=== PATIENT | male | born 1950 | race Caucasian/White ===

== ENCOUNTER 2021-02-19 11:52 | Outpatient (CLI) | payer MEDICARE, BC ==
--- NOTE | 2021-02-19 12:37 | XRAY Report ---
PROCEDURE: Shoulder 2 View RT INDICATIONS: R SHOULDER PX TECHNIQUE: 2 views of the shoulder were acquired. COMPARISON: None. FINDINGS: Bones: No fractures or dislocations. No suspicious bony lesions. Visualized ribs appear intact. Soft tissues: No suspicious soft tissue calcifications. IMPRESSION: Normal right shoulder Reviewed by: Johnnie Vann on 02/19/2021 12:35 PM PDT Approved by: Johnnie Vann on 02/19/2021 12:35 PM PDT Station ID: [email or web address]
== END 2021-02-19 23:59 | disposition home or self-care (01) ==
LOC: DI.N 11:52
PROVIDERS: ATTEND Nurse Practitioner
DX: M25.511 Pain in right shoulder (principal)

== ENCOUNTER 2021-02-19 13:26 | Emergency (ER) | payer MEDICARE, BC ==
[2021-02-19 13:45] VITALS: BP 152/86
--- NOTE | 2021-02-19 14:22 | XRAY Report ---
PROCEDURE: Chest 1 View X-Ray INDICATIONS: Chest pain TECHNIQUE: One view of the chest was acquired. COMPARISON: None FINDINGS: Surgical changes and devices: None. Lungs and pleura: No pleural effusions or pneumothorax. Lungs are clear. Mediastinum: Mediastinal contours appear normal. Heart size is normal. Bones and chest wall: No suspicious bony lesions. Age-appropriate degenerative changes are seen. O verlying soft tissues appear unremarkable. IMPRESSION: Normal portable chest Reviewed by: Serafin Morris MD on 02/19/2021 1:20 PM AKDT Approved by: Serafin Morris MD on 02/19/2021 1:20 PM AKDT Station ID: [id number]
[2021-02-19 14:43] LABS: BASOPHILS % (AUTO) 0.2 %; EOSINOPHILS % (AUTO) 0.3 %; HCT - HEMATOCRIT 42.7 % (42.0-52.0); HGB - HEMOGLOBIN 15.1 g/dL (14.0-18.0); LYMPHOCYTES # (AUTO) 1.2 10^3/uL (1.5-3.5); LYMPHOCYTES % (AUTO) 18.6 %; MEAN CORPUSCULAR HEMOGLOBIN 30.6 pg (27.0-31.0); MEAN CORPUSCULAR HGB CONC 35.4 g/dL (32.0-36.0); MEAN CORPUSCULAR VOLUME 86.6 fL (80.0-94.0); MEAN PLATELET VOLUME 9.3 fL (7.4-11.4); MONOCYTES # (AUTO) 0.5 10^3/uL (0.0-1.0); MONOCYTES % (AUTO) 7.2 %; NEUTROPHILS # (AUTO) 4.6 10^3/uL (1.5-6.6); NEUTROPHILS % (AUTO) 73.4 %; PLT - PLATELET COUNT 161 10^3/uL (130-450); RED BLOOD COUNT 4.93 10^6/uL (4.70-6.10); RED CELL DISTRIBUTION WIDTH 12.6 % (12.0-15.0); WHITE BLOOD COUNT 6.2 x10^3/uL (4.8-10.8)
[2021-02-19 14:55] LABS: ALBUMIN 4.5 g/dL (3.2-5.5); ALBUMIN/GLOBULIN RATIO 1.3 (1.0-2.2); BILIRUBIN,TOTAL 0.9 mg/dL (0.2-1.0); CALCIUM 9.4 mg/dL (8.5-10.3); CREATININE 1.2 mg/dL (0.6-1.2); POTASSIUM 4.1 mmol/L (3.5-5.0)
--- NOTE | 2021-02-19 16:14 | ED Physician Documentation ---
History of Present Illness - Stated complaint Stated Complaint: high bp, light headed - Chief complaint Chief Complaint: Cardiac - History obtained from History obtained from: Patient - Additonal information Additional information: 70-year-old gentleman with history of hypertension started amlodipine about 3 weeks ago. He also had a shoulder injury a little before that. He is noted for the last 3 weeks that when he stands up too fast or is upright he just feels a little off and dizzy. It is nonspecific. It is not associate with chest pain or trouble breathing. No pedal edema or calf pain. Review of Systems Constitutional: denies: Fever, Chills, Myalgias, Fatigue Eyes: denies: Loss of vision, Decreased vision, Photophobia Ears: denies: Loss of hearing, Ear pain Nose: denies: Rhinorrhea / runny nose, Congestion Throat: denies: Sore throat Cardiac: denies: Chest pain / pressure, Palpitations PD PAST MEDICAL HISTORY - Past Medical History Cardiovascular: Other Respiratory: None, Other Endocrine/Autoimmune: None GI: None : None, Other HEENT: None, Other Psych: None Musculoskeletal: Rheumatoid arthritis Derm: None - Present Medications Home Medications: Ambulatory Orders Medication Instructions Recorded Confirmed Aspirin/Calcium Carbonate/Mag 325 mg PO DAILY 09/26/14 09/26/14 [Aspirin Non Irrit 325 mg Tab] Finasteride 5 mg PO DAILY 09/26/14 09/26/14 Gluc [place]/Chondro [place] A/Vit C/Mn 1 each PO DAILY 09/26/14 09/26/14 [Glucosamine 1,500 Complex Cp] Saw [place] Fruit/Zinc Picoli 1 cap PO DAILY 09/26/14 09/26/14 [Saw [place] Capsule] Selenium 200 mcg PO DAILY 09/26/14 09/26/14 Tamsulosin [Flomax] 0.4 mg PO DAILY 09/26/14 09/26/14 Zolpidem [Ambien] 5 mg PO DAILY PRN 09/26/14 09/26/14 - Allergies Allergies/Adverse Reactions: Allergies Allergy/AdvReac Type Severity Reaction Status Date / Time No Known Drug Allergies Allergy Verified 02/19/21 13:39 PD ED PE NORMAL - Vitals Vital signs reviewed: Yes - General General: Alert and oriented X 3, No acute distress - Neck Neck: Supple, no meningeal sign, No bony TTP - Cardiac Cardiac: RRR, No murmur - Respiratory Respiratory: No respiratory distress, Clear bilaterally - Abdomen Abdomen: Non tender - Extremities Extremities: No edema, No calf tenderness / cord - Neuro Neuro: Alert and oriented X 3, Normal speech Results - Vitals Vitals: Vital Signs - 24 hr 02/19/21 13:40 Temperature 36.6 C Heart Rate 80 Respiratory 16 Rate Blood Pressure 152/86 H O2 Saturation 97 Oxygen O2 Source Room air - EKG (time done) 1348 Rate: Rate (enter#) (81) Rhythm: NSR [place]: Normal Intervals: Normal [place] QRS: Normal Ischemia: Normal ST segments - Labs Labs: Laboratory Tests 02/19/21 02/19/21 02/19/21 14:38 14:38 14:38 WBC 6.2 RBC 4.93 Hgb 15.1 Hct 42.7 MCV 86.6 MCH 30.6 MCHC 35.4 RDW 12.6 Plt Count 161 MPV 9.3 Neut # (Auto) 4.6 Lymph # (Auto) 1.2 L [place] # (Auto) 0.5 Eos # (Auto) 0.0 Baso # (Auto) 0.0 Absolute Nucleated RBC 0.00 Nucleated RBC % 0.0 Sodium 138 Potassium 4.1 Chloride 103 Carbon Dioxide 26 Anion Gap 9.0 BUN 29 H Creatinine 1.2 Estimated GFR (MDRD) 60 L Glucose 133 H Calcium 9.4 Total Bilirubin 0.9 AST 20 ALT 25 Alkaline Phosphatase 59 Troponin I High Sens 3.0 Total Protein 8.0 Albumin 4.5 Globulin 3.5 Albumin/Globulin Ratio 1.3 Lipase 22 PD MEDICAL DECISION MAKING - ED course ED course: 70-year-old gentleman with nonspecific lightheadedness. Recent increase in his blood pressure medicines and also admits to probably not keeping up with the [facility] er with recent heat episodes. His BUN is slightly elevated compared to his normal which is already a little elevated and oral rehydration is encouraged. Single view chest x-ray interpreted contemporaneously by me is normal Departure - Departure Disposition: 01 Home, Self Care Condition: Good Record reviewed to determine appropriate education?: Yes Instructions: ED Dehydration, ED Near Syncope Unkn Comments: As discussed, your BUN is slightly higher than your usual, combined with your new blood pressure medication you are probably a little bit dehydrated. Follow- up with your physician and drink more water. Return for new or worsening symptoms.
== END 2021-02-19 16:20 | disposition home or self-care (01) ==
LOC: ED 13:26
DX: R42 Dizziness and giddiness (principal); E86.0 Dehydration; I10 Essential (primary) hypertension
CPT/HCPCS: 36415; 80053; 83690; 84484; 85025; 93005; 99284

== ENCOUNTER 2021-02-27 18:16 | Outpatient (CLI) | payer MEDICARE, BC ==
--- NOTE | 2021-02-28 08:49 | XRAY Report ---
PROCEDURE: Cervical Spine 2 View INDICATIONS: STRAIN OF MUSCLE, FASCIA, AND TENDON AT NECK LEVEL TECHNIQUE: 2 view(s) of the cervical spine were acquired. COMPARISON: None. FINDINGS: Bones: No fractures or dislocations to the C7-T1 level. There is straightening of normal cervical l ordosis. Degenerative endplate changes are noted at C5-6 and C6-7 levels. The lateral masses of C1 ap pear intact on the odontoid view. No suspicious bony lesions. Soft tissues: No prevertebral soft tissue swelling. IMPRESSION: No cervical spine fracture or dislocation. Degenerative disc disease at C5-6 and C6-7 le vels. Reviewed by: Javier Ramirez MD on 02/28/2021 8:48 AM PDT Approved by: Javier Ramirez MD on 02/28/2021 8:48 AM PDT Station ID: [id number]
== END 2021-02-27 18:17 | disposition home or self-care (01) ==
LOC: DI.N 18:16
PROVIDERS: ATTEND Family Medicine
DX: S16.1XXD Strain of muscle, fascia and tendon at neck level, subsequent encounter (principal); M50.322 Other cervical disc degeneration at C5-C6 level

== ENCOUNTER 2021-07-31 07:33 | Outpatient (CLI) | payer MEDICARE, BC ==
[2021-07-31 08:06] LABS: CREATININE 1.3 mg/dL (0.6-1.2)
[2021-07-31] MEDS ORDERED: GADOBUTROL 10 MMOL/10 ML VIAL ONE (08:20)
--- NOTE | 2021-07-31 09:40 | MRI Report ---
PROCEDURE: Brain W/WO INDICATIONS: VERTIGO CONTRAST: IV CONTRAST: Gadavist ml: 8.8 TECHNIQUE: Noncontrast axial T1 spin echo, axial T2 fast spin echo, sagittal and axial FLAIR, coronal T2 fast sp in echo, axial gradient echo, axial diffusion and ADC through the brain. After the administration of contrast, axial and coronal T1 spin echo with fat saturation through the brain. COMPARISON: None. FINDINGS: Image quality: Excellent. CSF spaces: Basal cisterns are patent. No extra-axial fluid collections. Ventricles are normal in size and shape. Brain: No midline shift. No intracranial bleeds or masses. No abnormal intracranial enhancement. There is cerebral volume loss for age. There is mild, age-appropriate periventricular white matter c hronic small vessel ischemic change. The brainstem appears normal. Diffusion-weighted images demons trate no acute ischemic insults. No chronic ischemic insults. Normal intravascular flow voids are p resent. Skull and face: Calvarial marrow is normal in signal. Orbits appear normal. Sinuses: Sinuses and mastoids appear clear. IMPRESSION: 1. Age-related volume loss and mild, age-appropriate small vessel ischemic change. 2. No evidence acute stroke, hemorrhage, or mass. Reviewed by: Glenroy Weiss MD on 07/31/2021 9:39 AM PST Approved by: Glenroy Weiss MD on 07/31/2021 9:39 AM PST Station ID: [id number]
[2021-07-31] MEDS ORDERED: GADOBUTROL 10 MMOL/10 ML VIAL IVP ONE (16:29)
== END 2021-07-31 07:34 | disposition home or self-care (01) ==
LOC: LAB 07:33 → DI 07:34
PROVIDERS: ATTEND Family Medicine
DX: R42 Dizziness and giddiness (principal)
CPT/HCPCS: 36415; 70553; 82565; A9585

== ENCOUNTER 2022-09-16 07:21 | Outpatient (CLI) | payer MEDICARE, BC ==
[2022-09-16 07:49] LABS: CREATININE,URINE 109.4 mg/dL; MICROALBUM/CREATININE RATIO,UR 2.7 ug/mg (<30.0); MICROALBUMIN,URINE 0.3 mg/dL (0-300.0)
[2022-09-16 13:27] LABS: ESTIMATED AVERAGE GLUCOSE 123 mg/dL (70-100); HEMOGLOBIN A1c% 5.9 % (4.27-6.07)
== END 2022-09-16 07:22 | disposition home or self-care (01) ==
LOC: LAB 07:21
PROVIDERS: ATTEND Nurse Practitioner
DX: E11.9 Type 2 diabetes mellitus without complications (principal)
CPT/HCPCS: 36415; 82043; 82570; 83036

== ENCOUNTER 2022-12-16 07:01 | Outpatient (CLI) | payer MEDICARE, BC | END 2022-12-16 07:02 | disposition home or self-care (01) | LOC: LAB 07:01 | PROVIDERS: ATTEND Urology | DX: Z12.5 Encounter for screening for malignant neoplasm of prostate (principal) ==

== ENCOUNTER 2023-01-03 10:00 | Outpatient (CLI) | payer MEDICARE, BC ==
[2023-01-03 17:38] LABS: BASOPHILS % (AUTO) 0.5 %; EOSINOPHILS # (AUTO) 0.1 10^3/uL (0.0-0.7); EOSINOPHILS % (AUTO) 1.2 %; HCT - HEMATOCRIT 43.2 % (42.0-52.0); HGB - HEMOGLOBIN 14.7 g/dL (14.0-18.0); LYMPHOCYTES # (AUTO) 1.6 10^3/uL (1.5-3.5); LYMPHOCYTES % (AUTO) 26.8 %; MEAN CORPUSCULAR HEMOGLOBIN 30.4 pg (27.0-31.0); MEAN CORPUSCULAR VOLUME 89.4 fL (80.0-94.0); MEAN PLATELET VOLUME 10.6 fL (7.4-11.4); MONOCYTES # (AUTO) 0.4 10^3/uL (0.0-1.0); MONOCYTES % (AUTO) 7.5 %; NEUTROPHILS # (AUTO) 3.8 10^3/uL (1.5-6.6); NEUTROPHILS % (AUTO) 63.8 %; PLT - PLATELET COUNT 198 10^3/uL (130-450); RED BLOOD COUNT 4.83 10^6/uL (4.70-6.10); RED CELL DISTRIBUTION WIDTH 12.8 % (12.0-15.0); WHITE BLOOD COUNT 5.9 x10^3/uL (4.8-10.8)
[2023-01-03 17:56] LABS: ALBUMIN 4.5 g/dL (3.2-5.5); ALBUMIN/GLOBULIN RATIO 1.4 (1.0-2.2); BILIRUBIN,TOTAL 0.8 mg/dL (0.2-1.0); CALCIUM 9.7 mg/dL (8.5-10.3); CREATININE 1.4 mg/dL (0.6-1.2); POTASSIUM 4.1 mmol/L (3.5-5.0); TOTAL PROTEIN 7.7 g/dL (6.7-8.2)
== END 2023-01-03 10:15 | disposition home or self-care (01) ==
LOC: LAB.N 10:00
PROVIDERS: ATTEND Nurse Practitioner
DX: R25.1 Tremor, unspecified (principal)
CPT/HCPCS: 36415; 80053; 85025

== ENCOUNTER 2023-01-09 07:02 | Outpatient (CLI) | payer MEDICARE, BC ==
--- NOTE | 2023-01-09 08:16 | CT Report ---
PROCEDURE: HEAD WO INDICATIONS: TREMOR TECHNIQUE: Noncontrast 4.5 mm thick angled axial sections acquired from the foramen magnum to the vertex. For r adiation dose reduction, the following was used: automated exposure control, adjustment of mA and/or kV according to patient size. COMPARISON: MRI brain dated 07/31/2021. FINDINGS: Image quality: Excellent. CSF spaces: Basal cisterns are patent. No extra-axial fluid collections. Ventricles are normal in size and shape. Brain: No midline shift. No intracranial masses or hemorrhage. No mass effect. Ribera-white matter i nterface is normal. There cerebral volume loss for age with resultant ventricular and sulcal prominen ce. There are periventricular and deep white matter chronic small vessel ischemic changes. Atheroscle rotic calcifications are noted in the intracranial segments of the bilateral internal carotid arterie s. Skull and face: Calvarium and visualized facial bones are intact, without suspicious lesions. Sinuses: Visualized sinuses and mastoids are clear. IMPRESSION: CT head without acute intracranial abnormalities. No mass or mass effect. Age-related senescent changes and sequela of chronic small vessel ischemic disease. Reviewed by: Darryl Michelle MD on 01/09/2023 8:14 AM PDT Approved by: Darryl Michelle MD on 01/09/2023 8:14 AM PDT Station ID: [id number]
== END 2023-01-09 07:03 | disposition home or self-care (01) ==
LOC: DI 07:02
PROVIDERS: ATTEND Nurse Practitioner
DX: R25.1 Tremor, unspecified (principal)

== ENCOUNTER 2023-01-12 06:05 | Emergency (ER) | payer MEDICARE, BC ==
--- NOTE | 2023-01-12 06:58 | ED Physician Documentation ---
PD HPI FOCAL NEURO - Stated complaint Stated Complaint: TREMORS - Chief complaint Chief Complaint: General - History obtained from History obtained from: Patient - History of Present Illness Timing - onset: How many months ago (has had some intermittent tremors for awhile. However has had increased amount of symptoms the past 2 months. HNotes it mainly at rest and bed. He describes the tremor that past several nights as almost appearing rigor like but he denies fever/illness per se.) Timing - details: Gradual onset, Intermittant Severity of deficit: Moderate Associated symptoms: No: Headache, Nausea / vomiting, Back pain Baseline status: positive: A&OX3, ambulatory, indep Similar symptoms before: Has not had sx before Recently seen: Clinic (went to walk in clinic few days ago and had outpt labs done and outpt head CT. Head CT done yesteday but pt had not heard results as yet.) Review of Systems Constitutional: denies: Fever, Chills Skin: denies: Rash, Lesions Neurologic: denies: Focal weakness, Numbness, Headache, Head injury PD PAST MEDICAL HISTORY - Past Medical History Cardiovascular: Hypertension, High cholesterol, Other Respiratory: None, Other Neuro: Other Endocrine/Autoimmune: Type 2 diabetes GI: GERD : Renal insuffiency, Other HEENT: None, Other Psych: None Musculoskeletal: Osteoarthritis Derm: None - Present Medications Home Medications: Ambulatory Orders Medication Instructions Recorded Confirmed Finasteride 5 mg PO DAILY 09/26/14 08/05/22 Saw [place] Fruit/Zinc Picoli 1 cap PO DAILY 09/26/14 08/05/22 [Saw [place] Capsule] Selenium 200 mcg PO DAILY 09/26/14 08/05/22 Tamsulosin [Flomax] 0.4 mg PO DAILY 09/26/14 08/05/22 Atorvastatin [Lipitor] 10 mg PO DAILY 08/05/22 08/05/22 Losartan Potassium [Cozaar] 100 mg PO DAILY 08/05/22 08/05/22 Omeprazole Magnesium 20 mg PO DAILY 08/05/22 08/05/22 hydroCHLOROthiazide [Hydrodiuril] 12.5 mg PO DAILY 08/05/22 08/05/22 metFORMIN [Glucophage] 500 mg PO BIDWM 08/05/22 08/05/22 - Allergies Allergies/Adverse Reactions: Allergies Allergy/AdvReac Type Severity Reaction Status Date / Time No Known Drug Allergies Allergy Verified 02/19/21 13:39 - Social History Does the pt smoke?: No Smoking Status: Never smoker Does the pt drink ETOH?: No Does the pt have substance abuse?: No - Immunizations Immunizations are current?: Yes - POLST Patient has POLST: No PD ED PE NORMAL - Vitals Vital signs reviewed: Yes - General General: Alert and oriented X 3, No acute distress, Well developed/nourished - Neck Neck: Supple, no meningeal sign, No JVD - Cardiac Cardiac: RRR, No murmur - Respiratory Respiratory: No respiratory distress, Clear bilaterally - Abdomen Abdomen: Normal bowel sounds, Soft, Non distended Results - Vitals Vitals: Vital Signs - 24 hr 01/12/23 01/12/23 06:19 07:42 Temperature 36.6 C Heart Rate 74 63 Respiratory 12 18 Rate Blood Pressure 144/88 H 142/88 H O2 Saturation 99 100 Oxygen O2 Source Room air - Labs Labs: Laboratory Tests 01/12/23 01/12/23 01/12/23 07:54 07:54 07:54 ESR 8 Total Creatine Kinase 76 Vitamin B12 307 TSH 1.13 PD Medical Decision Making - ED course ED course: he has had tremoring particularly at evening/night, with rested and/or trying to go to sleep. Not noting it during the daytime. I reviewed the head CT report done outpt and conveyed result to pedro. I saw the basic blood test done 2 weeks ago outpatient. Those essentially appeared normal with some mild chronic deficit of your kidney function. There are other blood tests I would consider with regard to tremor and neurologic function. I ordered those today and we will not get the results back for a few days. Follow-up with your primary care on Friday as planned. Have them reference some of the added blood test. These are typically low yield meaning unlikely to be abnormal but would fit with the idea of tremor so added those on since the basic ones have been normal. The CT result of the head does not show any obvious acute abnormalities. Age- related changes are noted. No tumors or mass effect etc. There are multiple categories of investigating tremor. Some is just enhanced physiologic and can do with things as simple as hydration. Medication related tremor can come from different medications. On your list of medicines, the statin can relate to muscle function and therefore lead to tremor. You could try stopping your atorvastatin for a month and see if it has an impact. Other categories as well. Regarding some of your other symptoms like the lightheadedness with standing, that is a very common side effect to your prostate medicines as well as the diuretic so probably does not need too much explanation. Sounds like you have very minimal caffeine so it is likely to be related. Follow-up with your primary care Friday as planned. Return if needed. Consideration for his tremor if sympotms are continued and bothersome wihould be Atenolol or SSRIs. Departure - Departure Disposition: Home, Self Care Clinical Impression: Tremor Condition: Stable Record reviewed to determine appropriate education?: Yes Comments: I saw the basic blood test done 2 weeks ago outpatient. Those essentially appeared normal with some mild chronic deficit of your kidney function. There are other blood tests I would consider with regard to tremor and neurologic function. I ordered those today and we will not get the results back for a few days. Follow-up with your primary care on Friday as planned. Have them reference some of the added blood test. These are typically low yield meaning unlikely to be abnormal but would fit with the idea of tremor so added those on since the basic ones have been normal. The CT result of the head does not show any obvious acute abnormalities. Age- related changes are noted. No tumors or mass effect etc. There are multiple categories of investigating tremor. Some is just enhanced physiologic and can do with things as simple as hydration. Medication related tremor can come from different medications. On your list of medicines, the statin can relate to muscle function and therefore lead to tremor. You could try stopping your atorvastatin for a month and see if it has an impact. Other categories as well. Regarding some of your other symptoms like the lightheadedness with standing, that is a very common side effect to your prostate medicines as well as the diuretic so probably does not need too much explanation. Sounds like you have very minimal caffeine so it is likely to be related. Follow-up with your primary care Friday as planned. Return if needed. Discharge Date/Time: 01/12/23 08:18
[2023-01-12 07:46] VITALS: BP 142/88
[2023-01-12 08:33] LABS: THYROID STIMULATING HORMONE 1.13 uIU/mL (0.34-5.60)
[2023-01-14 13:10] LABS: TREPONEMA PALLIDUM ANTIBODIES Non Reactive (Non Reactive)
[2023-01-14 16:08] LABS: ARSENIC BLOOD 2 ug/L (0-9); LEAD BLOOD 1.2 ug/dL (0.0-3.4); MERCURY BLOOD 1.3 ug/L (0.0-14.9)
== END 2023-01-12 08:18 | disposition home or self-care (01) ==
LOC: ED 06:05
DX: R25.1 Tremor, unspecified (principal); I10 Essential (primary) hypertension; E78.00 Pure hypercholesterolemia, unspecified; E11.9 Type 2 diabetes mellitus without complications; K21.9 Gastro-esophageal reflux disease without esophagitis; Z79.899 Other long term (current) drug therapy; Z79.84 Long term (current) use of oral hypoglycemic drugs
CPT/HCPCS: 36415; 82175; 82550; 82607; 83655; 83825; 84207; 84443; 85651; 86780; 99283

== ENCOUNTER 2023-01-28 08:05 | Outpatient (CLI) | payer MEDICARE, BC ==
--- NOTE | 2023-01-28 17:16 | Ultrasound Report ---
PROCEDURE: Carotid Doppler Complete INDICATIONS: CAROTID BRUIT TECHNIQUE: Color and pulse Doppler interrogation was performed of both carotid systems, with image documentation and velocity measurements. COMPARISON: None. FINDINGS: Right side: Brachial blood pressure: 127/77 mm Hg. Common carotid artery peak systolic velocity: 102 cm/sec. Internal carotid artery peak systolic velocity: 112 cm/sec. Internal carotid artery end diastolic velocity: 50 cm/sec. External carotid artery peak systolic velocity: 73 cm/sec. ICA/CCA peak systolic ratio: 1.1 . Ribera scale imaging description: Minimal plaque at the bifurcation Percent internal carotid artery stenosis: Less than 50%. Vertebral artery: Flow direction is antegrade. Left side: Brachial blood pressure: 123/77 mm Hg. Common carotid artery peak systolic velocity: 96 cm/sec. Internal carotid artery peak systolic velocity: 76 cm/sec. Internal carotid artery end diastolic velocity: 34 cm/sec. External carotid artery peak systolic velocity: 80 cm/sec. ICA/CCA peak systolic ratio: 0.8 . Ribera scale imaging description: Minimal plaque bifurcates Percent internal carotid artery stenosis: Less than 50 percent stenosis. Vertebral artery: Flow direction is antegrade. IMPRESSION: 1. In the right internal carotid artery, there is less than 50 percent stenosis based on peak systoli c velocity criteria. 2. In the left internal carotid artery, there is less than 50 percent stenosis based on peak systolic velocity criteria. 3. Antegrade blood flow within the right vertebral artery. 4. Antegrade blood flow within the left vertebral artery. The estimate of stenosis included in the report of the imaging study was calculated using the [facility]-end orsed standards of carotid artery stenosis. Reviewed by: Anabella Rush MD on 01/28/2023 5:14 PM PDT Approved by: Anabella Rush MD on 01/28/2023 5:14 PM PDT Station ID: [id number]
== END 2023-01-28 08:06 | disposition home or self-care (01) ==
LOC: DI 08:05
PROVIDERS: ATTEND Nurse Practitioner
DX: I65.23 Occlusion and stenosis of bilateral carotid arteries (principal)
CPT/HCPCS: 93880

== ENCOUNTER 2023-02-06 13:00 | Outpatient (CLI) | payer MEDICARE, BC ==
[2023-02-06 18:49] LABS: THYROID STIMULATING HORMONE 1.12 uIU/mL (0.34-5.60)
[2023-02-06 18:51] LABS: FREE T3 3.41 pg/mL (2.5-3.9); FREE T4 (FREE THYROXINE) 1.31 ng/dL (0.58-1.64)
== END 2023-02-06 13:15 | disposition home or self-care (01) ==
LOC: LAB.N 13:00
PROVIDERS: ATTEND Registered Nurse
DX: G31.84 Mild cognitive impairment of uncertain or unknown etiology (principal); R25.1 Tremor, unspecified
CPT/HCPCS: 36415; 84439; 84443; 84481

== ENCOUNTER 2023-02-20 09:37 | Outpatient (CLI) | payer MEDICARE, BC ==
[2023-02-20 10:12] LABS: BILIRUBIN,URINE NEGATIVE (NEGATIVE); GLUCOSE, URINE (UA) NEGATIVE (NEGATIVE); KETONES,URINE (UA) NEGATIVE (NEGATIVE); LEUKOCYTE ESTERASE, URINE NEGATIVE (NEGATIVE); NITRITE,URINE NEGATIVE (NEGATIVE); OCCULT BLOOD,URINE TRACE-INTA (NEGATIVE); PROTEIN,URINE NEGATIVE (NEGATIVE); UROBILINOGEN,URINE 0.2 (NORMAL) E.U./dL (NORMAL)
[2023-02-20 10:14] LABS: CLARITY,URINE CLEAR (CLEAR)
[2023-02-20 10:41] LABS: PSA FREE 0.717 ng/mL (0.16-2.81)
[2023-02-20 10:42] LABS: PSA TOTAL 3.793 ng/mL (0.000-2.000)
[2023-02-20 10:44] LABS: BACTERIA,URINE Few /HPF (None Seen); RBC,URINE 0-5 /HPF (0-5); SQUAMOUS EPITHELIAL CELL,UR NONE SEEN (<= Few); WBC,URINE 0-3 /HPF (0-3)
== END 2023-02-20 09:38 | disposition home or self-care (01) ==
LOC: LAB 09:37
PROVIDERS: ATTEND Urology
DX: R97.20 Elevated prostate specific antigen [PSA] (principal); R39.9 Unspecified symptoms and signs involving the genitourinary system
CPT/HCPCS: 36415; 81001; 84153; 84154; 87086

== ENCOUNTER 2023-04-03 08:19 | Outpatient (CLI) | payer MEDICARE, BC ==
--- NOTE | 2023-04-03 10:51 | MRI Report ---
PROCEDURE: BRAIN WO INDICATIONS: MEMORY LOSS TECHNIQUE: Noncontrast axial T1 spin echo, axial T2 fast spin echo, sagittal and axial FLAIR, coronal T2 fast sp in echo, axial gradient echo, axial diffusion and ADC through the brain. COMPARISON: 07/31/2021. Correlation is also made with head CT, 01/09/2023. FINDINGS: Image quality: Excellent. CSF Spaces: Basal cisterns are patent. No extra-axial fluid collections. Ventricles are normal in size and shape. Brain: No intracranial masses or hemorrhage. Ribera/white matter interface is normal. Brainstem appe ars normal. Diffusion-weighted images demonstrate no acute ischemic insult. No chronic ischemic ins ults. Normal intravascular flow voids are present. Skull and face: Calvarium has normal marrow signal. Orbits appear normal. Sinuses: Sinuses and mastoids are clear. IMPRESSION: Study within normal limits for age, without a cause of the patient's presenting symptoms identified. Similar to prior. Age-appropriate brain parenchymal volume loss and chronic small vessel ischemic change can be seen. No findings of acute or subacute infarction are seen. Reviewed by: Serafin Morris MD on 04/03/2023 9:50 AM ZOILA Approved by: Serafin Morris MD on 04/03/2023 9:50 AM ZOILA Station ID: [id number]
== END 2023-04-03 08:20 | disposition home or self-care (01) ==
LOC: DI 08:19
PROVIDERS: ATTEND Nurse Practitioner
DX: R25.1 Tremor, unspecified (principal); G31.84 Mild cognitive impairment of uncertain or unknown etiology; R42 Dizziness and giddiness; G31.89 Other specified degenerative diseases of nervous system

== ENCOUNTER 2023-04-29 04:13 | Emergency (ER) | payer MEDICARE, BC ==
[2023-04-29] MEDS ORDERED: LORazepam 0.5 MG TABLET PO STA (04:33)
--- NOTE | 2023-04-29 04:34 | ED Physician Documentation ---
PD HPI URI - Stated complaint Stated Complaint: THROAT PX - Chief complaint Chief Complaint: Heent - History obtained from History obtained from: Patient - Additional information Additional information: 72-year-old male with history of recently diagnosed prostate cancer (unknown stage, currently under investigation), anxiety, memory loss presents by private vehicle from home for scratching sensation in his throat as well as the feeling that he cannot cough up mucus. Symptoms have been ongoing for approximately 1 week, but worse this morning. No medications taken at home prior to arrival. Patient states that he feels like there is a stick stuck in his throat. Denies difficulty swallowing, denies drooling, denies fevers, chills, nausea, vomiting. Triage note states heartburn, however patient clarifies that he feels like he has mucus that can't be coughed up. Patient's at bedside states that the patient's already high anxiety has been even worse since his cancer diagnosis. She states that patient has had multiple evaluations by neurology and primary care physician for "dizziness", however no cause has been found even after MRI evaluation. states that the primary reason for coming in today was the sore throat and cough. They have an appointment with his primary care physician at 10 AM later this morning Review of Systems Constitutional: denies: Fever, Chills Throat: reports: Sore throat. denies: Dental pain / toothache, Oral lesions / sores Respiratory: reports: Cough. denies: Dyspnea, Wheezing GI: denies: Abdominal Pain, Nausea, Vomiting Musculoskeletal: denies: Neck pain, Back pain, Extremity pain Neurologic: reports: Generalized weakness (chronic, "dizziness"). denies: Focal weakness, Numbness, Difficulty speaking, Near syncope, Syncope, Seizure, Confused PD PAST MEDICAL HISTORY - Past Medical History Cardiovascular: Hypertension, High cholesterol, Other Respiratory: None, Other Neuro: Other Endocrine/Autoimmune: Type 2 diabetes GI: GERD : Renal insuffiency, Other HEENT: None, Other Psych: None Musculoskeletal: Osteoarthritis Derm: None - Present Medications Home Medications: Ambulatory Orders Medication Instructions Recorded Confirmed Finasteride 5 mg PO DAILY 09/26/14 08/05/22 Saw Rudyard Fruit/Zinc Picoli 1 cap PO DAILY 09/26/14 08/05/22 [Saw Rudyard Capsule] Selenium 200 mcg PO DAILY 09/26/14 08/05/22 Tamsulosin [Flomax] 0.4 mg PO DAILY 09/26/14 08/05/22 Atorvastatin [Lipitor] 10 mg PO DAILY 08/05/22 08/05/22 Losartan Potassium [Cozaar] 100 mg PO DAILY 08/05/22 08/05/22 Omeprazole Magnesium 20 mg PO DAILY 08/05/22 08/05/22 hydroCHLOROthiazide [Hydrodiuril] 12.5 mg PO DAILY 08/05/22 08/05/22 metFORMIN [Glucophage] 500 mg PO BIDWM 08/05/22 08/05/22 - Allergies Allergies/Adverse Reactions: Allergies Allergy/AdvReac Type Severity Reaction Status Date / Time No Known Drug Allergies Allergy Verified 02/19/21 13:39 - Social History Does the pt smoke?: No Smoking Status: Never smoker Does the pt drink ETOH?: No Does the pt have substance abuse?: No - Immunizations Immunizations are current?: Yes - POLST Patient has POLST: No PD ED PE NORMAL - Vitals Vital signs reviewed: Yes - General General: Alert and oriented X 3, Well developed/nourished, Other (anxious) - HEENT HEENT: Atraumatic, PERRL, EOMI, Moist mucous membranes, Pharynx benign, Dentition benign - Neck Neck: Supple, no meningeal sign, No bony TTP, No adenopathy - Cardiac Cardiac: RRR, No murmur, Strong equal pulses - Respiratory Respiratory: No respiratory distress, Clear bilaterally - Abdomen Abdomen: Soft, Non tender, Non distended - Derm Derm: Normal color, Warm and dry, No rash - Extremities Extremities: No deformity, No tenderness to palpate, Normal ROM s pain, No edema - Neuro Neuro: Alert and oriented X 3, 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 parapertussis DNA (PCR) NOT DETECTED Nasal Coronavir 229E PCR NOT DETECTED Nasal Coronavir HKU1 PCR NOT DETECTED Nasal Coronavir NL63 PCR NOT DETECTED Nasal Coronavir OC43 PCR NOT DETECTED Nasal Enterovir/Rhinovir PCR NOT DETECTED Nasal Influenza B PCR NOT DETECTED Nasal Influenza A PCR NOT DETECTED Nasal Parainfluen 1 PCR NOT DETECTED Nasal Parainfluen 2 PCR NOT DETECTED Nasal Parainfluen 3 PCR NOT DETECTED Nasal Parainfluen 4 PCR NOT DETECTED Nasal RSV (PCR) NOT DETECTED Nasal B.pertussis DNA PCR NOT DETECTED Nasal C.pneumoniae (PCR) NOT DETECTED Issac Human Metapneumo PCR NOT DETECTED Nasal M.pneumoniae (PCR) NOT DETECTED Nasal SARS-CoV-2 (PCR) NOT DETECTED PD Medical Decision Making - ED course Complexity details: reviewed old records, reviewed results, re-evaluated patient, considered differential, d/w patient, d/w family ED course: Nontoxic-appearing patient presenting for scratchy throat, the sensation that something is stuck in his throat, and mucus stuck in chest. Vital signs are unremarkable, pharynx is unremarkable, he is tolerating secretions without difficulty and voice is normal to both him and his at bedside. Viral panel is negative, chest x-ray shows linear atelectasis without evidence o f consolidation or pneumonia. Patient and updated at bedside. I explained that I do not know the exact cause of his symptoms, however I recommended starting Mucinex and increasing fluid intake to see if that improves symptoms. I recommended that the patient keep his follow-up appointment later this morning and he may discuss his symptoms with his primary care physician as well later this morning. Departure - Departure Disposition: 01 Home, Self Care Clinical Impression: Pharyngitis Qualifiers: Pharyngitis/tonsillitis etiology: unspecified etiology Qualified Code(s): J02.9 - Acute pharyngitis, unspecified Condition: Stable Instructions: ED Pharyngitis Viral Forms: PCP List
[2023-04-29 04:35] VITALS: O2SAT 100
[2023-04-29 05:36] LABS: B. PARAPERTUSSIS- RESP PCR PAN NOT DETECTED; B. PERTUSSIS- RESP PCR PANEL NOT DETECTED; C. PNEUMONIAE- RESP PCR PANEL NOT DETECTED; CORONAVIRUS 229E-RESP PCR NOT DETECTED; CORONAVIRUS HKU1-RESP PCR NOT DETECTED; CORONAVIRUS NL63-RESP PCR NOT DETECTED; CORONAVIRUS OC43-RESP PCR NOT DETECTED; HUMAN METAPNEUMOVIRUS NOT DETECTED; INFLUENZA A- RESP PCR PANEL NOT DETECTED; INFLUENZA B - RESP PCR PANEL NOT DETECTED; M. PNEUMONIAE- RESP PCR PANEL NOT DETECTED; PARAINFLUENZA VIRUS 1 NOT DETECTED; PARAINFLUENZA VIRUS 2 NOT DETECTED; PARAINFLUENZA VIRUS 3 NOT DETECTED; PARAINFLUENZA VIRUS 4 NOT DETECTED; RHINOVIRUS/ENTEROVIRUS NOT DETECTED; RSV- RESP PCR PANEL NOT DETECTED; SARS-CoV-2 -RESP PCR PANEL NOT DETECTED
[2023-04-29 05:54] VITALS: BP 127/85
--- NOTE | 2023-04-29 09:16 | XRAY Report ---
PROCEDURE: Chest 1 View X-Ray INDICATIONS: COUGH TECHNIQUE: One view of the chest was acquired. COMPARISON: None. FINDINGS: Surgical changes and devices: None. Lungs and pleura: No pleural effusions or pneumothorax. Linear bibasilar opacities likely atelectasi s. Mediastinum: Mediastinal contours appear normal. Heart size is normal. Bones and chest wall: No suspicious bony lesions. Overlying soft tissues appear unremarkable. IMPRESSION: No acute cardiopulmonary process. Reviewed by: Anabella Rush MD on 04/29/2023 9:15 AM PDT Approved by: Anabella Rush MD on 04/29/2023 9:15 AM PDT Station ID: [id number]
== END 2023-04-29 05:51 | disposition home or self-care (01) ==
LOC: ED 04:13
DX: J02.9 Acute pharyngitis, unspecified (principal); Z20.822 Contact with and (suspected) exposure to COVID-19
CPT/HCPCS: 71045; 87633; 93005; 99283; 99284; A9270

== ENCOUNTER 2023-06-04 07:06 | Outpatient (CLI) | payer MEDICARE, BC ==
[2023-06-04 08:04] LABS: THYROID STIMULATING HORMONE 1.38 uIU/mL (0.34-5.60)
== END 2023-06-04 07:07 | disposition home or self-care (01) ==
LOC: LAB 07:06
PROVIDERS: ATTEND Psychiatry & Neurology Neurology
DX: R53.83 Other fatigue (principal); R41.3 Other amnesia; E55.9 Vitamin D deficiency, unspecified
CPT/HCPCS: 36415; 81599; 82306; 82607; 82746; 84439; 84443

== ENCOUNTER 2023-09-17 10:22 | Outpatient (CLI) | payer MEDICARE, BC | END 2023-09-17 10:23 | disposition home or self-care (01) | LOC: LAB 10:22 | PROVIDERS: ATTEND Urology | DX: C61 Malignant neoplasm of prostate (principal) | CPT/HCPCS: 36415; 84153 ==

== ENCOUNTER 2023-12-25 06:54 | Outpatient (CLI) | payer MEDICARE, BC ==
[2023-12-25 07:29] LABS: BASOPHILS % (AUTO) 0.3 %; EOSINOPHILS # (AUTO) 0.1 10^3/uL (0.0-0.7); HCT - HEMATOCRIT 38.8 % (42.0-52.0); HGB - HEMOGLOBIN 13.2 g/dL (14.0-18.0); LYMPHOCYTES # (AUTO) 0.5 10^3/uL (1.5-3.5); LYMPHOCYTES % (AUTO) 14.3 %; MEAN CORPUSCULAR HEMOGLOBIN 30.2 pg (27.0-31.0); MEAN CORPUSCULAR VOLUME 88.8 fL (80.0-94.0); MEAN PLATELET VOLUME 9.2 fL (7.4-11.4); MONOCYTES # (AUTO) 0.4 10^3/uL (0.0-1.0); MONOCYTES % (AUTO) 10.9 %; NEUTROPHILS # (AUTO) 2.4 10^3/uL (1.5-6.6); NEUTROPHILS % (AUTO) 69.9 %; PLT - PLATELET COUNT 165 10^3/uL (130-450); RED BLOOD COUNT 4.37 10^6/uL (4.70-6.10); RED CELL DISTRIBUTION WIDTH 13.3 % (12.0-15.0); WHITE BLOOD COUNT 3.5 x10^3/uL (4.8-10.8)
[2023-12-25 08:00] LABS: CREATININE,URINE 162.1 mg/dL; MICROALBUMIN,URINE 1.3 mg/dL
== END 2023-12-25 06:55 | disposition home or self-care (01) ==
LOC: LAB 06:54
PROVIDERS: ATTEND Nurse Practitioner
DX: I10 Essential (primary) hypertension (principal); E78.5 Hyperlipidemia, unspecified; E11.9 Type 2 diabetes mellitus without complications; R42 Dizziness and giddiness; F41.9 Anxiety disorder, unspecified; F32.A Depression, unspecified
CPT/HCPCS: 36415; 80053; 80061; 82043; 82570; 82607; 83721; 84443; 85025

== ENCOUNTER 2023-12-28 07:24 | Outpatient (CLI) | payer MEDICARE, BC ==
[2023-12-28 08:03] LABS: ALBUMIN 4.2 g/dL (3.2-5.5); ALBUMIN/GLOBULIN RATIO 1.7 (1.0-2.2); ALKALINE PHOSPHATASE 65 IU/L (42-121); ALT ALANINE AMINOTRANSFERASE 22 IU/L (10-60); AST ASPARTATE AMINOTRANSFERASE 17 IU/L (10-42); BILIRUBIN,TOTAL 0.7 mg/dL (0.2-1.0); BUN - BLOOD UREA NITROGEN 25 mg/dL (6-20); CALCIUM 10.1 mg/dL (8.5-10.3); CARBON DIOXIDE - CO2 29 mmol/L (21-32); CHLORIDE 101 mmol/L (101-111); CHOL/HDL RATIO 2.3 (<5.0); CHOLESTEROL 143 mg/dL; CREATININE 1.3 mg/dL (0.6-1.3); GFR - MDRD 54 (>89); GLUCOSE 105 mg/dL (74-104); HDL CHOLESTEROL 63 mg/dL; LDL CHOLESTEROL,CALCULATED 49 mg/dL; LDL/HDL RATIO 0.8 (<3.6); POTASSIUM 3.8 mmol/L (3.5-4.5); SODIUM 137 mmol/L (135-145); TOTAL PROTEIN 6.7 g/dL (6.4-8.9); TRIGLYCERIDES 154 mg/dL (48-352); VLDL CHOLESTEROL 31 mg/dL
[2023-12-28 08:15] LABS: THYROID STIMULATING HORMONE 1.33 uIU/mL (0.34-5.60)
== END 2023-12-28 07:25 | disposition home or self-care (01) ==
LOC: LAB 07:24
PROVIDERS: ATTEND Nurse Practitioner
DX: I10 Essential (primary) hypertension (principal); E78.5 Hyperlipidemia, unspecified; E11.9 Type 2 diabetes mellitus without complications; R42 Dizziness and giddiness; F41.9 Anxiety disorder, unspecified; F32.A Depression, unspecified
CPT/HCPCS: 36415; 80053; 80061; 82607; 83721; 84443

== ENCOUNTER 2024-03-22 09:01 | Outpatient (CLI) | payer MEDICARE, BC ==
[2024-03-22 11:04] LABS: ESTIMATED AVERAGE GLUCOSE 103 mg/dL (70-100); HEMOGLOBIN A1c% 5.2 % (4.27-6.07)
== END 2024-03-22 09:02 | disposition home or self-care (01) ==
LOC: LAB 09:01
PROVIDERS: ATTEND Nurse Practitioner
DX: E11.9 Type 2 diabetes mellitus without complications (principal)
CPT/HCPCS: 36415; 83036

== ENCOUNTER 2024-04-01 08:18 | Outpatient (CLI) | payer MEDICARE, BC | END 2024-04-01 08:19 | disposition home or self-care (01) | LOC: LAB 08:18 | PROVIDERS: ATTEND Urology | DX: C61 Malignant neoplasm of prostate (principal) | CPT/HCPCS: 36415; 84153 ==

== ENCOUNTER 2025-07-02 18:27 | Inpatient (IN) ==
--- OUTSIDE RECORDS SUMMARY | 2025-07-02 18:40 | EXTERNAL MEDICAL SUMMARY RPT | Continuity of Care Document ---
Author Organization [facility] Address [address] [place] [id number] Phone Problems date description facility 2025-05-31 11:21 Encounter for immunization [facility] 2025-06-01 09:45 Malignant neoplasm of prostate [facility] 2025-06-01 09:45 Type 2 diabetes ghislaine itus with diabetic chronic kidney disease [facility] 2025-06-01 09:45 Type 2 diabetes mellitus withou t complications [facility] 2025-06-01 09:45 Depression, unspecified [facility] 2025-06-01 09:45 [facility]45 Parkinson's disease without dyskinesia, without mention of fluctuations [facility] 2025-06-01 09:45 Parkinson's disease with dyskinesia, without mention of fluctuations [facility] 2025-06-01 09:45 Gastro-esophageal reflux diseas e without esophagitis [facility] 2025-06-01 09:45 Unspecified contact dermatitis, unspecified cause [facility] 2025-06-01 09:45 Chronic kidney disease, stage 3 a [facility] 2025-06-01 09:45 Repeated falls [facility] 2025-06-01 09:45 Other amnesia [facility] 2025-06-01 09:45 Encounter for immunization [facility] 2025-06-21 09:08 Malignant neoplasm of prostate [facility] 2025-06-21 09:09 Malignant neoplasm of prostate [facility] 2025-06-22 00:04 Malignant neoplasm of prostate [facility] Results/Labs test date facility value unit notes Result panel 1 PSA SCREEN (Z12.5) 2025-06-21 09:23 [facility] < 0.008 ng/ml [facility] uses a WHO cutoff value of 2.0 ng/mL. Social History date description facility
--- NOTE | 2025-07-02 18:44 | ED Physician Documentation ---
History of Present Illness Stated complaint Stated Complaint: GLF/WEAKNESS Chief complaint Chief Complaint: Ext Problem History obtained from History obtained from: Patient and EMS History of Present Illness Pain level max: 5 Additonal information Additional information: Patient is a 74-year-old male, history of Parkinson's disease and prostate cancer as well as chronic kidney disease. Has not been taking his medications recently. History of memory loss as well. He has been weaker than usual according to EMS and has had several falls. He just seemed weaker today at home so the ambulance was called. Patient is unsure why he is in the emergency department today. He does state that his left ribs hurt but he is unable to describe this any further. Review of Systems Status of ROS: unobtainable due to mental status Meds/Allgy Home Medications Ambulatory Orders Medication Instructions Recorded Confirmed selenium 200 mcg capsule 200 mcg PO DAILY 09/26/14 carbidopa 25 mg-levodopa 100 mg 1.5 tab PO TID 5 05/31/25 tablet (Sinemet) ester root extract 15 mg chewable 15 mg PO BID 05/31/25 tablet mecobalamin (vitamin B12) 1,000 1,000 mcg PO QDAY 01/0905/31/25 mcg chewable tablet psyllium husk 0.4 gram capsule 1.6 g PO QDAY 12/20/24 05/31/25 (Metamucil) escitalopram oxalate 20 mg tablet 20 mg PO QDAY #90 ta bs 05/31/25 05/31/25 memantine 10 mg tablet (Namenda) 10 mg PO BID #180 tab s 05/31/25 05/31/25 omeprazole magnesium 20 mg 20 mg PO DAILY #90 caps 05/31/25 capsule,delayed release tamsulosin 0.4 mg capsule 0.4 mg PO DAILY #90 caps 05/31/25 atomoxetine 10 mg capsule 10 mg PO BID #60 caps metformin 500 mg tablet 500 mg PO BID #180 tabs 06/18 12/10 Allergies Allergies Allergy/AdvReac Type Severity Reaction Status Date / Time No Known Drug Allergies Allergy Verified 07/02/25 18:36 PFSH Active Problems All Active Problems (Updated 07/02/25 @ 22:43 by Kamar Winn MD) Fracture of lumbar spine (Acute) Closed rib fracture (Acute) Recurrent falls (Acute) Contact dermatitis (Acute) Tremor (Acute) Fatigue (Acute) Dizziness (Acute) Loss of smell (Acute) Chronic kidney disease (Acute) Bursitis of left knee (Acute) Callus of foot (Acute) GERD (gastroesophageal reflux disease) (Acute) Periodic limb movement disorder (Acute) Insomnia (Acute) Parkinsons disease (Acute) Dysthymia (Acute) Anxiety and depression (Acute) Prostate cancer (Acute) Parkinson's disease with dyskinesia, without mention of fluctuations (Acute) Thoracic back pain (Acute) Hyperlipidemia (Acute) Stage 3a chronic kidney disease due to type 2 diabetes mellitus (Acute 09/15/20) BPH w urinary obs/LUTS (Acute 05/19/13) Memory loss (Acute 03/20/23) Essential hypertension, benign (Acute 03/16/19) Type 2 diabetes mellitus (Acute 06/27/22) Social History Social History (Updated 05/31/25 @ 10:11 by Lisa De Jesus MA) Smoking Status: Never smoker Second hand tobacco smoke exposure: No Do you dip or chew tobacco?: No Do you vape?: No Living arrangement: At home Marital Status: Living Condition: With spouse/s.o. Support Person: Yes Physical Activity: None Level: Assisted Do you feel safe in your home environment?: Yes History of physical, verbal, emotional, or financial abuse?: No ETOH Use: None Substance Use: denies use POLST Patient has POLST: No Exam Exam Vital Signs: Vital Signs x48h Temp Pulse Resp BP Pulse Ox 07/02/25 18:35 79 18 162/99 H 93 07/02/25 18:29 36.7 C 80 18 170/106 H 95 Constitutional normal general appearance and no apparent distress HENMT normocephalic, head/scalp atraumatic, TMs normal bilaterally and oropharynx normal Eyes PERRL and EOMs intact bilaterally Neck/C-Spine trachea midline and cervical spine nontender Respiratory normal respiratory effort and clear to auscultation bilaterally Cardiovascular normal heart rate noted and regular rhythm noted Gastrointestinal abdomen soft to palpation, nontender to palpation and nondistended Back/Pelvis no thoracic spine tenderness and no lumbar spine tenderness Psychiatry alert, disoriented to place, time and situation. Skin skin color normal Results Vitals Vitals: Vital Signs - 24 hr 07/02/25 18:29 07/02/25 18:35 Temperature 36.7 C Temperature Source Oral Pulse Rate 80 79 Respiratory Rate 18 18 Blood Pressure 170/106 H 162/99 H O2 Saturation 95 93 O2 Source Room air Room air Pain Intensity 4 5 Oxygen O2 Source Room air Labs Labs: Laboratory Tests 07/02/25 07/02/25 07/02/25 18:38 19:15 21:22 WBC 7.6 RBC 4.45 L Hgb 13.8 L Hct 41.2 L MCV 92.6 MCH 31.0 MCHC 33.5 RDW 13.0 Plt Count 146 MPV 9.6 Neut # (Auto) 5.2 Lymph # (Auto) 1.5 Barron # (Auto) 0.7 Eos # (Auto) 0.1 Baso # (Auto) 0.0 Absolute Nucleated RBC 0.00 Nucleated RBC % 0.0 Sodium 137 Potassium 4.7 H Chloride 105 Carbon Dioxide 25 Anion Gap 7.0 BUN 26 H Creatinine 1.2 Estimated GFR (MDRD) 59 L Glucose 110 H Calcium 9.7 Total Bilirubin 0.6 AST 16 ALT 18 Alkaline Phosphatase 76 Total Protein 7.3 Albumin 4.4 Globulin 2.9 Albumin/Globulin Ratio 1.5 Urine Color YELLOW Urine Clarity CLEAR Urine pH 6.5 Ur Specific [place] 1.015 Urine Protein TRACE Urine Glucose (UA) NEGATIVE Urine Ketones NEGATIVE Urine Occult Blood TRACE-INTACT Urine Nitrite NEGATIVE Urine Bilirubin NEGATIVE Urine Urobilinogen 0.2 (NORMAL) Ur Leukocyte Esterase NEGATIVE Urine RBC 6-10 H Urine WBC 0-3 Ur Squamous Epith Cells NONE SEEN Urine Bacteria Few Ur Microscopic Review INDICATED Urine Culture Comments NOT INDICATED Urine Opiates Screen NEGATIVE Ur Buprenorphine Scrn NEGATIVE Ur Oxycodone Screen NEGATIVE Urine Methadone Screen NEGATIVE Urine Fentanyl Screen Negative Ur Barbiturates Screen NEGATIVE Ur Tricyclics Screen NEGATIVE Ur Phencyclidine Scrn NEGATIVE Ur Amphetamine Screen NEGATIVE U Methamphetamines Scrn NEGATIVE U Benzodiazepines Scrn NEGATIVE Urine Cocaine Screen NEGATIVE U Cannabinoids Screen NEGATIVE Ur Drug Screen Comment CUTOFF CONC BELOW: Ethyl Alcohol < 10.0 Rads (name of study) CT head, CT cervical spine, CT chest, CT lumbar spine: Relevant Findings:: Final report received PD Medical Decision Making ED course Complexity details: reviewed results, re-evaluated patient, considered differential and d/w patient ED course: 74-year-old male with Parkinson's, dementia, significant falls. Apparently has been off his medications for unclear reasons. He is significantly altered but unclear exactly what his baseline is. CT head, cervical spine, chest and lumbar spine were performed. He has a left ninth rib fracture but no pneumothorax or hemothorax. Has L1 and L2 endplate compression fractures without loss of height and no retropulsion. Given morphine for pain. Still having significant pain with movement and unable to ambulate even with a walker. Discussed the case with surgery, Dr. Norton, she states that she can follow-up for the rib fracture but given the patient's medical complexities would be better served by the hosp [facility] hospitalist service. Patient has been signed out to Dr. Pryor awaiting hospitalist consult for observation/admission. This document was made in part using voice recognition software. While efforts are made to proofread this document, sound alike and grammatical errors may occur. Discharge Plan Discharge Condition: Stable Clinical Impression: Prostate cancer Parkinson's disease with dyskinesia, without mention of fluctuations Qualifiers: Fluctuating manifestations: unspecified whether manifestations fluctuate Qualified Code(s): G20.B1 - Parkinson's disease with dyskinesia, without mention of fluctuations Closed rib fracture Qualifiers: Encounter type: initial encounter Rib fracture type: single rib Laterality: lef t Qualified Code(s): S22.32XA - Fracture of one rib, left side, initial encounter for closed fracture Fracture of lumbar spine Qualifiers: Encounter type: initial encounter Lumbar vertebra fracture level: unspecified lumbar vertebra Fracture type: closed Fracture morphology: unspecified fracture morphology Qualified Code(s): S32.009A - Unspecified fracture of unspecified lumbar vertebra, initial encounter for closed fracture Prescriptions: No Action atomoxetine 10 mg capsule 10 mg PO BID Qty: 60 5RF Rx Instructions: Take 1 capsule by mouth twice a day metformin 500 mg tablet 500 mg PO BID Qty: 180 4RF selenium 200 MCG capsule 200 mcg PO DAILY mecobalamin (vitamin B12) 1,000 mcg tablet,chewable 1,000 mcg PO QDAY psyllium husk [Metamucil] 0.4 gram capsule 1.6 g PO QDAY ester root extract 15 mg tablet,chewable 15 mg PO BID carbidopa-levodopa [Sinemet] 25-100 mg tablet 1.5 tab PO TID escitalopram oxalate 20 mg tablet 20 mg PO QDAY Qty: 90 4RF Rx Instructions: Take 1 tablet by mouth once a day memantine [Namenda] 10 mg tablet 10 mg PO BID Qty: 180 4RF omeprazole magnesium 20 mg capsule,delayed release(DR/EC) 20 mg PO DAILY Qty: 90 4RF tamsulosin 0.4 mg capsule 0.4 mg PO DAILY Qty: 90 4RF Print Language: Senegalese Stand Alone Forms: PCP List
[2025-07-02 19:20] LABS: HCT - HEMATOCRIT 41.2 % (42.0-52.0); HGB - HEMOGLOBIN 13.8 g/dL (14.0-18.0); MEAN PLATELET VOLUME 9.6 fL (7.4-11.4); NRBC ABSOLUTE COUNT (AUTO) 0.00 x10^3/uL; NUCLEATED RED BLOOD CELLS AUTO 0.0 /100WBC; PLT - PLATELET COUNT 146 10^3/uL (130-450); RED CELL DISTRIBUTION WIDTH 13.0 % (12.0-15.0)
[2025-07-02] MEDS: SODIUM CHLORIDE 0.9% 1,000 ML IV STA (19:20)
[2025-07-02 19:38] LABS: ALT ALANINE AMINOTRANSFERASE 18 IU/L (10-60); AST ASPARTATE AMINOTRANSFERASE 16 IU/L (10-42); BUN - BLOOD UREA NITROGEN 26 mg/dL (6-20); CARBON DIOXIDE - CO2 25 mmol/L (21-32); CREATININE 1.2 mg/dL (0.6-1.3); ETOH - ETHANOL < 10.0 mg/dL; GFR - MDRD 59 (>89)
--- NOTE | 2025-07-02 19:46 | CT Report ---
PROCEDURE: CT Head WO INDICATIONS: fall, head injury TECHNIQUE: CT of the head was performed, without intravenous contrast. Reformats: Coronal and sagittal. For radiation dose reduction, the following was used: automated exposure control, adjustment of mA and/or kV according to patient size. COMPARISON: None. FINDINGS: Image quality: Diagnostic. CSF spaces: Basal cisterns are patent. No extra-axial fluid collections. Ventricles are normal in size and shape. Brain: No midline shift. No intracranial mass effect or hemorrhage. Ribera- white matter interface is normal. Mild diffuse cerebral volume loss. Skull and face: Calvarium and visualized facial bones are intact, without suspicious lesions. Sinuses: Visualized sinuses and mastoids are clear. IMPRESSION: No acute intracranial pathology. Reviewed by: Sal Perez MD on 07/02/2025 7:43 PM PST Approved by: Sal Perez MD on 07/02/2025 7:43 PM PST Station ID: [id number]
--- NOTE | 2025-07-02 19:50 | CT Report ---
PROCEDURE: CT Chest WO INDICATIONS: fall, L rib pain TECHNIQUE: A CT scan of the chest was performed. Intravenous contrast media was not administered. Images were recorded and evaluated at appropriate window settings. Reformats: axial MIP of the chest, coronal and sagittal. For radiation dose reduction, the following was used: automated exposure control, adjustment of mA and/or kV according to patient size. COMPARISON: None. FINDINGS: Image quality: Diagnostic. Chest wall and lower neck: No thyroid nodule which requires sonographic follow up. No axillary or supraclavicular adenopathy by size. Lungs and pleura: No consolidation. No pleural effusions. No pneumothorax. No suspicious pulmonary nodules which require follow up. Mild compressive atelectasis in the left lung. Mediastinum: Heart size is normal. No pericardial effusion. No large vessel abnormality. No mediastinal adenopathy by size criteria. Trace coronary calcification. Aortic atherosclerotic calcifications. Bones: Acute minimally displaced lateral left ninth rib fracture. L2 superior endplate compression fracture. Approximately 90% residual vertebral body height. Possible compression fracture of the superior endplate of L1. Upper Abdomen: Unremarkable. IMPRESSION: 1. Acute left ninth rib fracture. 2. Acute L2 superior endplate compression fracture. 3. Possible acute L1 superior endplate compression fracture. Reviewed by: Sal Perez MD on 07/02/2025 7:47 PM PST Approved by: Sal Perez MD on 07/02/2025 7:47 PM PST Station ID: [id number]
[2025-07-02] MEDS ORDERED: HYDROmorphone 1 MG/ML CARPUJECT ONE (21:12)
[2025-07-02] MEDS ORDERED: MORPHINE 2 MG/ML CARPUJECT ONE (21:17)
[2025-07-02] MEDS: MORPHINE 2 MG/ML CARPUJECT IVP STA (21:20)
[2025-07-02 21:40] LABS: GLUCOSE, URINE (UA) NEGATIVE (NEGATIVE); KETONES,URINE (UA) NEGATIVE (NEGATIVE); OCCULT BLOOD,URINE TRACE-INTACT (NEGATIVE)
[2025-07-02 21:48] LABS: SQUAMOUS EPITHELIAL CELL,UR NONE SEEN (<= Few)
[2025-07-02 21:49] LABS: AMPHETAMINE SCREEN,URINE NEGATIVE (NEGATIVE); BARBITURATE SCREEN,UR NEGATIVE (NEGATIVE); BENZODIAZEPINES SCREEN, URINE NEGATIVE (NEGATIVE); BUPRENORPHINE SCREEN, URINE NEGATIVE (NEGATIVE); COCAINE SCREEN URINE NEGATIVE (NEGATIVE); METHADONE SCREEN, URINE NEGATIVE (NEGATIVE); METHAMPHETAMINES SCREEN, URINE NEGATIVE (NEGATIVE); OPIATE SCREEN, URINE NEGATIVE (NEGATIVE); THC CANNABINOID SCREEN, URINE NEGATIVE (NEGATIVE)
--- NOTE | 2025-07-02 22:11 | CT Report ---
PROCEDURE: CT Cervical Spine WO INDICATIONS: falls TECHNIQUE: Noncontrast images acquired from the skull base to the T4 level. Sagittal and coronal reformats were then constructed. For radiation dose reduction, the following was used: automated exposure control, adjustment of mA and/or kV according to patient size. COMPARISON: None. FINDINGS: Image quality: Excellent. Bones: No fractures or dislocations. Visualized superior ribs are intact. Degenerated disc osteophyte complex at C5 5 6 and C6-7 results in mild spinal canal stenosis at these levels. Mild bilateral neuroforaminal stenosis at C6-7 and C7-T1 due to uncovertebral greater than facet arthrosis. Soft tissues: Prevertebral soft tissues are normal in thickness. No paravertebral hematomas. No apical pneumothoraxes. IMPRESSION: No acute, displaced fracture or traumatic subluxation. Reviewed by: Silverio Mehta MD on 07/02/2025 10:08 PM [facility] Approved by: Silverio Mehta MD on 07/02/2025 10:08 PM PST Station ID: [id number]
--- NOTE | 2025-07-02 22:17 | CT Report ---
PROCEDURE: CT Lumbar Spine WO INDICATIONS: Multiple falls, L1 fracture TECHNIQUE: Noncontrast images acquired from the T12 level to the sacrum. Sagittal and coronal reformats were constructed. For radiation dose reduction, the following was used: automated exposure control, adjustment of mA and/or kV according to patient size. COMPARISON: None. FINDINGS: Image quality: Excellent. Bones: Grade one 4 mm anterior listhesis of L5 on S1. Mild, grade 1, degenerative retrolisthesis of L3 on L4. Diffuse osseous demineralization. L1 superior endplate compression deformity results in 10% anterior and central vertebral body height loss. L2 superior endplate compression deformity results i n 15 % anterior and central vertebral body height loss. No extension of the fractures to the posterior elements. T12-L1: No bony spinal canal or neural foramen stenosis L1-L2: No bony spinal canal or neural foramen stenosis L2-L3: No bony spinal canal or neural foramen stenosis L3-L4: Mild spinal canal stenosis due to retrolisthesis disc uncovering, mild ligamentum flavum thickening, and facet arthrosis. Mild bilateral neuroforaminal stenosis due to subarticular disc bulge L4-L5: Moderate spinal canal stenosis due to diffusely bulging disc, ligamentum flavum thickening, and facet arthrosis with epidural lipomatosis. Mild bilateral, left greater than right, neural foraminal stenosis due to subarticular bulging disc and facet arthrosis. L5-S1: No bony spinal canal or neuroforaminal stenosis. Degenerated disc with disc uncovering from anterior listhesis. Soft tissues: No retroperitoneal masses or hematomas. Visualized aorta is normal in caliber. IMPRESSION: 1. L1 and L2 superior endplate compression deformities with 10% and 15% vertebral body height loss. 2. Grade 1 degenerative anterolisthesis of L5 on S1. 3. Multilevel spinal canal stenosis, moderate at L4-5. 4. Multilevel mild neural foraminal stenosis. Reviewed by: Silverio Mehta MD on 07/02/2025 10:13 PM PST Approved by: Silverio Mehta MD on 07/02/2025 10:13 PM PST Station ID: [id number]
--- NOTE | 2025-07-03 01:35 | ED Physician Documentation ---
ED Addendum Addendum Addendum: I see sign-out/turnover of care in this patient from Dr. Winn; please see his note for complete H&P. In brief, patient sustained fall earlier today with acute onset of left chest wall pain which correlates with finding on tonight's CT chest of acute left ninth rib fracture, as well as lower back pain, correlating with finding of acute L2 superior endplate compression fracture (along with possible acute L1 superior endplate compression fracture). No concerning findings on CBC, CMP. CT C-spine without acute, displaced fracture or traumatic subluxation. I discussed this case with [facility] on-call; he asks that I discuss the case with neurosurgery before considering admit to [facility]. I was subsequently put in touch with Dr. Hubbard (on-call spinal surgeon for [facility]); she reviewed the images (pushed to [facility]) and I discussed the case including exam findings with her. She says patient is appropriate for admit to [facility], recommends upright lumbar x-rays looking for inducible kyphosis but x-rays can be deferred until such time as patient is able to bear adequate weight (currently unable to do so due to pain). I then recontacted [facility] and they will admit to [facility] for observation and pain control. Discharge Plan Discharge Patient Disposition: 67 [facility] DC/Xfer Condition: Stable Clinical Impression: Prostate cancer Parkinson's disease with dyskinesia, without mention of fluctuations Qualifiers: Fluctuating manifestations: unspecified whether manifestations fluctuate Qualified Code(s): G20.B1 - Parkinson's disease with dyskinesia, without mention of fluctuations Closed rib fracture Qualifiers: Encounter type: initial encounter Rib fracture type: single rib Laterality: left Qualified Code(s): S22.32XA - Fracture of one rib, left side, initial encounter for closed fracture Fracture of lumbar spine Qualifiers: Encounter type: initial encounter Lumbar vertebra fracture level: unspecified lumbar vertebra Fracture type: closed Fracture morphology: unspecified fracture morphology Qualified Code(s): S32.009A - Unspecified fracture of unspecified lumbar vertebra, initial encounter for closed fracture Interventions: ED Admission Assessment Last Done: 07/03/25 05:33 Vitals documented within 30 minutes of discharge?: Yes
--- OUTSIDE RECORDS SUMMARY | 2025-07-03 05:08 | EXTERNAL MEDICAL SUMMARY RPT | Continuity of Care Document ---
Author Organization [facility] Address [address] [place] [id number] Phone Problems date description facility 2025-05-31 11:21 Encounter for immunization [facility] ([facility]) 2025-06-01 09:45 Malignant neoplasm of prostate [facility] 2025-06-01 09:45 Type 2 diabetes ghislaine itus with diabetic chronic kidney disease [facility] 2025-06-01 09:45 Type 2 diabetes mellitus withou t complications [facility] 2025-06-01 09:45 Depression, unspecified [facility] 2025-06-01 09:45 [facility]xiety disorder, [facility] 2025-[facility] 09:45 Parkinson's disease without dyskinesia, without mention of fluctuations [facility] 2025-06-01 09:45 Parkinson's disease with dyskinesia, without mention of fluctuations [facility] 2025-06-01 09:45 Gastro-esophageal reflux diseas e without esophagitis [facility] 2025-06-01 09:45 Unspecified contact dermatitis, unspecified cause [facility] 2025-06-01 09:45 Chronic kidney disease, stage 3 a [facility] 2025-06-01 09:45 Repeated falls [facility] 2025-06-01 09:45 Other amnesia [facility] 2025-06-01 09:45 Encounter for immunization [facility] (Chapter 11) 2025-06-21 09:08 Malignant neoplasm of prostate [facility] 2025-06-21 09:09 Malignant neoplasm of prostate [facility] 2025-06-22 00:04 Malignant neoplasm of prostate [facility] Results/Labs test date facility value unit notes Result panel 1 PSA SCREEN (Z12.5) 2025-06-21 09:23 [facility] < 0.008 ng/ml [facility] uses a WHO cutoff value of 2.0 ng/mL. Result panel 2 NUCLEATED RED BLOOD CELLS [facility]O [facility]100wbc (missing) BASOPHILS # (AUTO) 2025-07-02 18:38 [facility] 0.0 10 3/ul (missing) NRBC ABSOLUTE COUNT (AUTO) 2025-07-02 18:38 [facility] 0 .00 x10 3/ul (missing) EOSINOPHILS # (AUTO) 2025-07-02 18:38 [facility] 0.1 10 3/ul (missing) MONOCYTES # (AUTO) 2025-07-02 18:38 [facility] 0.7 10 3/ul (missing) LYMPHOCYTES # (AUTO) 2025-07-02 18:38 [facility] 1.5 10 3/ul (missing) RED CELL DISTRIBUTION WIDTH 2025-07-02 18:38 [facility] 13.0 % (missing) HGB - HEMOGLOBIN 2025-07-02 18:38 [facility] 13.8 g /dl (missing) PLT - PLATELET COUNT 2025-07-02 18:38 [facility] 146 10 3/ul (missing) MEAN CORPUSCULAR HEMOGLOBIN 2025-07-02 18:38 [facility] 31.0 pg (missing) MEAN CORPUSCULAR HGB CONC 2025-07-02 18:38 [facility] 33 .5 g/dl (missing) RED BLOOD COUNT 2025-07-02 18:38 [facility] 4.45 10 6/ul (missing) HCT - HEMATOCRIT 2025-07-02 18:38 [facility] 41.2 % (missing) NEUTROPHILS # (AUTO) 2025-07-02 18:38 [facility] 5.2 10 3/ul (missing) WHITE BLOOD COUNT 2025-07-02 18:38 [facility] 7.6 x10 3/ul (missing) MEAN PLATELET VOLUME 2025-07-02 18:38 [facility] 9.6 fl (missing) MEAN CORPUSCULAR VOLUME 2025-07-02 18:38 [facility] 92.6 fl (missing) Result panel 3 ETOH - ETHANOL 2025-07-02 19:15 [facility] < 10.0 mg/dl Blood Alcohol Levels Level Sporadic Drinkers Chronic drinkers 100 mg/dL Legally intoxicated* Minimal signs 200-250 mg/dL Alertness lost, Effort needed to becoming lethargic maintain emotional and motor control 300-350 mg/dL Stupor to coma Drowsy and slow >500 mg/dL Possible Coma *The legal definition of intoxication varies. This assy is for medical decision making only. As of February 2023 testing method has changed, this may include reference ranges. BILIRUBIN,TOTAL 2025-07-02:15 [facility] 0.6 mg/dl As of February 2023 test ing method has changed, this may include reference ranges. CREATININE 2025-07-02:15 [facility] 1.2 mg/dl As of February 2023 test ing method has changed, this may include reference ranges. ALBUMIN/GLOBULIN RATIO 2025-07-02 19:15 [facility] 1.5 (missing) (missing) CHLORIDE 2025-07-02 19:15 [facility] 105 mmol/l As of February 2023 test ing method has changed, this may include reference ranges. GLUCOSE 2025-07-02:15 [facility] 110 mg/dl As of February 2023 test ing method has changed, this may include reference ranges. SODIUM 2025-07-02:15 [facility] 137 mmol/l Unknown AST ASPARTATE AMINOTRANSFERASE 2025-07-02 19:15 [facility] 16 iu/l As of February 2023 test ing method has changed, this may include reference ranges. ALT ALANINE AMINOTRANSFERASE 2025-07-02 19:15 [facility] 18 iu/l As of February 2023 test ing method has changed, this may include reference ranges. GLOBULIN 2025-07-02:15 [facility] 2.9 g/dl (missing) CARBON DIOXIDE - CO2 2025-07-02 19:15 [facility] 25 mmol/l As of February 2023 test ing method has changed, this may include reference ranges. BUN - BLOOD UREA NITROGEN 2025-07-02 19:15 [facility] 26 mg/dl As of February 2023 test ing method has changed, this may include reference ranges. ALBUMIN 2025-07-02 19:15 [facility] 4.4 g/dl As of February 2023 test ing method has changed, this may include reference ranges. POTASSIUM 2025-07-02 19:15 [facility] 4.7 mmol/l As of February 2023 test ing method has changed, this may include reference ranges. GFR - MDRD 2025-07-02 19:15 [facility] 59 (missing) The IDMS-traceable M DRD Study Equation has been validated extensively in and populations between the ages of 18 and 70 with impaired kidney function (eGFR < 60 mL/min/1.73m2) and has shown good performance for patients with all common causes of kidney disease. Although this equation has not been validated for patients older than 70, an MDRD-derived eGFR may still be a useful tool for providers caring for patients older than 70. References: http://www.nkdep.nih.gov /lab-evaluation/gfr/crea tinine-stand ardization, last updated October 2011. ANION GAP 2025-07-02 19:15 [facility] 7.0 (missing) (missing) TOTAL PROTEIN 2025-07-02 19:15 [facility] 7.3 g/dl As of February 2023 test ing method has changed, this may include reference ranges. ALKALINE PHOSPHATASE 2025-07-02 19:15 [facility] 76 iu/l As of February 2023 test ing method has changed, this may include reference ranges. CALCIUM 2025-07-02 19:15 [facility] 9.7 mg/dl As of February 2023 test ing method has changed, this may include reference ranges. Result panel 4 WBC,URINE 2025-07-02 21:22 [facility] 0-3 /hpf (missing) UROBILINOGEN,URINE 2025-07-02:22 [facility] 0.2 (NORMAL) e.u./dl (missing) SPECIFIC GRAVITY,URINE 2025-07-02:22 [facility] 1.015 (missing ) (missing) RBC,URINE 2025-07-02:22 [facility] 6-10 /hpf (missing) PH,URINE 2025-07-02 21:22 [facility] 6.5 ph (missing) CLARITY,URINE 2025-07-02 21:22 [facility] CLEAR (missing ) (missing) MUDS CUTOFF CONCENTRATIONS 2025-07-02: [facility] CUTOFF CONC BELOW: (missing ) [facility] uses the [employer] Drugs of Abuse Test System. It detects drug classes at the following cutoff concentrations: AMP Amphetamine (d-Amphetamine) 500 ng/mL BAR Barbiturates (Butalbital) 200 ng/mL BZO Benzodiazepines (Nordiazepam) 150 ng/mL BUP Buprenorphine (Buprenorphine) 10 ng/mL PREET Cocaine (Benzoylecgonine) 150 ng/mL MAMP Methamphetamine (d-Methamphetamine) 500 ng/mL MTD Methadone (Methadone) 200 ng/mL OPI Opiates (Morphine) 100 ng/mL OXY Oxycodone (Oxycodone) 100 ng/mL PCP Phencyclidine (Phencyclidine) 25 ng/mL BUP Buprenorphine (Buprenorphine) 10 ng/mL THC Cannabinoids (95-xja-3-carboxy-9 -THC) 50 ng/mL TCA Tricyclic Antidepressants (Desipramine) 300 ng/mL All drug screen results are unconfirmed. Results are to be used for medical (i.e. treatment) purposes only. Unconfirmed screening results must not be used for non-medical purposes (e.g., employment testing, legal testing). BACTERIA,URINE 2025-07-02 21:22 [facility] Few /hpf (missing) URINE MICROSCOPIC INDICATED? 2025-07-02 21:22 [facility] INDICATED (missing ) (missing) AMPHETAMINE SCREEN,URINE 2025-07-02: [facility] NEGATIVE (missing ) (missing) BARBITURATE SCREEN,UR 2025-07-02 21:22 [facility] NEGATIVE (missing ) (missing) BENZODIAZEPINES SCREEN, URINE 2025-07-02 21:22 [facility] NEGATIVE (missing ) (missing) BUPRENORPHINE SCREEN, URINE 2025-07-02 21:22 [facility] NEGATIVE (missing ) (missing) COCAINE SCREEN URINE 2025-07-02: [facility] NEGATIVE (missing ) (missing) LEUKOCYTE ESTERASE, URINE 2025-07-02 21:[facility] NE[facility] ([facility] ) (missing) METHADONE SCREEN, URINE 2025-07-02: [facility] NEGATIVE (missing ) (missing) METHAMPHETAMINES SCREEN, URINE 2025-07-02 21:22 [facility] NEGATIVE (missing ) (missing) NITRITE,URINE 2025-07-02: [facility] NEGATIVE (missing ) (missing) OPIATE SCREEN, URINE 2025-07-02: [facility] NEGATIVE (missing ) (missing) OXYCODONE SCREEN, URINE 2025-07-02: [facility] NEGATIVE (missing ) (missing) PHENCYCLIDINE SCREEN, URINE 2025-07-02: [facility] NEGATIVE (missing ) (missing) THC CANNABINOID SCREEN, URINE 2025-07-02: [facility] NEGATIVE (missing ) (missing) TRICYCLIC ANTIDEPRESSANT,URINE 2025-07-02: [facility] NEGATIVE (missing ) (missing) BILIRUBIN,URINE 2025-07-02:22 [facility] NEGATIVE (missing ) Bilirubin can be influenced by color interference. Please correlate positive results with clinical presentation GLUCOSE, URINE (UA) 2025-07-02:22 [facility] NEGATIVE mg/dl (missing) KETONES,URINE (UA) 2025-07-02:22 [facility] NEGATIVE mg/dl (missing) SQUAMOUS EPITHELIAL CELL,UR 2025-07-02: [facility] NONE SEEN (missing ) (missing) UR CULTURE IF IND 2025-07-02:22 [facility] NOT INDICATED (missing ) (missing) FENTANYL SCREEN, URINE 2025-07-02:22 [facility] Negative (missing ) [email or web address] uses LZI Fentanyl (Q) Enzyme Immunoassay. RESULT INTERPRETATION: This assay qualitatively detects norfentanyl in urine which is the major metabolite of fentanyl. A result greater than or equal to 5 ng/mL is considered presumptively positive for fentanyl exposure. CLINICAL SIGNIFICANCE: Presumptive positive results indicate norfentanyl concentrations above the assay cutoff. Due to possible cross-reactivity and potential interference, confirmatory testing by a definitive method (e.g., LC-MS/MS) is recommended for positive or unexpected findings. LIMITATIONS: This test is intended for qualitative screening and is unconfirmed. Concentrations below 5 ng/mL may not be reliably detected. False positives and false negatives are possible. Results are to be used for medical purposes only and can't be used for non-medical or legal purposes. PROTEIN,URINE 2025-07-02 21:22 [facility] TRACE mg/dl (missing) OCCULT BLOOD,URINE 2025-07-02 21:22 [facility] TRACE-INTACT (missing ) (missing) COLOR,URINE 2025-07-02 21:22 [facility] YELLOW (missing ) URINE CLEAN CATCH Social History date description facility
--- NOTE | 2025-07-03 05:13 | HISTORY & PHYSICAL EXAMINATION ---
Chief Complaint Chief Complaint Chief Complaint: Back pain History of Present Illness History of Present Illness HPI Comment/Other: 74 y old male with PMH DM type 2, Parkinsonism, CKD, GERD presented to ER s/p fall. Pt denies head injury or LOC. C/O lower back pain. Denies numbness, weakness in arms or legs. Denies urinary or fecal incontinence CT head and C spine showed no acute findings CT chest showed left 9th rib fracture CT L spine showed L1 and L2 compression fracture As per ER physician ( Dr Addy Pryor) he consulted with neurosurgeon/spinal surgeon location worker who recommneded admission to the hospital for pain control Hospitalist service as askled to admit this patient for pain control due to rib and lumbar spinal fractures Review of Systems Status of ROS: 10 or more systems reviewed and unremarkable except as noted in history and below PFSH Active Problems All Active Problems (Updated 07/02/25 @ 22:43 by Kamar Winn MD) Fracture of lumbar spine (Acute) Closed rib fracture (Acute) Recurrent falls (Acute) Contact dermatitis (Acute) Tremor (Acute) Fatigue (Acute) Dizziness (Acute) Loss of smell (Acute) Chronic kidney disease (Acute) Bursitis of left knee (Acute) Callus of foot (Acute) GERD (gastroesophageal reflux disease) (Acute) Periodic limb movement disorder (Acute) Insomnia (Acute) Parkinsons disease (Acute) Dysthymia (Acute) Anxiety and depression (Acute) Prostate cancer (Acute) Parkinson's disease with dyskinesia, without mention of fluctuations (Acute) Thoracic back pain (Acute) Hyperlipidemia (Acute) Stage 3a chronic kidney disease due to type 2 diabetes mellitus (Acute 09/15/20) BPH w urinary obs/LUTS (Acute 05/19/13) Memory loss (Acute 03/20/23) Essential hypertension, benign (Acute 03/16/19) Type 2 diabetes mellitus (Acute 06/27/22) Social History Social History (Updated 05/31/25 @ 10:11 by Lisa De Jesus MA) Smoking Status: Never smoker Second hand tobacco smoke exposure: No Do you dip or chew tobacco?: No Do you vape?: No Living arrangement: At home Marital Status: Living Condition: With spouse/s.o. Support Person: Yes Physical Activity: None Level: Assisted Do you feel safe in your home environment?: Yes History of physical, verbal, emotional, or financial abuse?: No ETOH Use: None Substance Use: denies use POLST Patient has POLST: No Meds/Allgy Home Medications Ambulatory Orders Medication Instructions Recorded Confirmed selenium 200 mcg capsule 200 mcg PO DAILY 09/26/14 carbidopa 25 mg-levodopa 100 mg 1.5 tab PO TID 5 05/31/25 tablet (Sinemet) ester root extract 15 mg chewable 15 mg PO BID 05/31/25 tablet mecobalamin (vitamin B12) 1,000 1,000 mcg PO QDAY 01/0905/31/25 mcg chewable tablet psyllium husk 0.4 gram capsule 1.6 g PO QDAY 12/20/24 05/31/25 (Metamucil) escitalopram oxalate 20 mg tablet 20 mg PO QDAY #90 ta bs 05/31/25 05/31/25 memantine 10 mg tablet (Namenda) 10 mg PO BID #180 tab s 05/31/25 05/31/25 omeprazole magnesium 20 mg 20 mg PO DAILY #90 caps 05/31/25 capsule,delayed release tamsulosin 0.4 mg capsule 0.4 mg PO DAILY #90 caps 05/31/25 atomoxetine 10 mg capsule 10 mg PO BID #60 caps metformin 500 mg tablet 500 mg PO BID #180 tabs 06/18 12/10 Allergies Allergies Allergy/AdvReac Type Severity Reaction Status Date / Time No Known Drug Allergies Allergy Verified 07/02/25 18:36 Exam Exam Vital Signs: Vital Signs x48h Temp Pulse Resp BP Pulse Ox 07/03/25 00:35 37 C 71 20 179/103 H 94 Constitutional normal general appearance HENMT normocephalic Eyes PERRL Chest inspection of chest normal Respiratory breath sounds equal bilaterally Cardiovascular normal heart rate noted Gastrointestinal abdomen normal to inspection Extremities normal to inspection Neurology Pt is alert and awake, able to move all extremities Skin no rash Conclusion/Plan Problem List (1) Fracture of lumbar spine: Plan: A: Lower back pain Acute L1 and L2 fractures Acute left 9th rib fracture DM 2 Parkinsonism CKD 3 GERD Plan: Admit to med surg Pain control Zofran prn Hold metformin Start sliding scale insulin Cont sinemet Cont PPI DVT prophylaxic: SCD Full code Pt is admitted as inpatient as more than 2 midnight stay is expected Qualifiers: Encounter type: initial encounter Fracture morphology: unspecified fracture morphology Fracture type: closed Lumbar vertebra fracture level: u nspecified lumbar vertebra Qualified Code(s): S32.009A - Unspecified fracture of unspecified lumbar vertebra, initial encounter for closed fracture Lab Results 07/02/25 18:38 07/02/25 19:15
--- NOTE | 2025-07-03 07:39 | PROVIDER PROGRESS NOTE ---
Subjective Prog Note Date Prog Note Date: 07/03/25 Prog Note Time: 07:30 Subjective Subjective: Patient was just recently admitted in the early hours this morning. Still getting roomed this morning. Reviewed his records. He has been seen by family medicine, Dr. Collier. Just got a second opinion from neurology on April 25. Confirm diagnosis of Parkinson's dementia. Has had associated symptoms of dysautonomia with falls and balance issues. Blood pressure 83/50 at the clinic, has been started on midodrine. Family is working to get an in-home caregiver. They have already moved him to the first level of their home so he does not have to use stairs. He has some sleep disturbance with worsening restlessness at night. He has a DNR/comfort care POLST already on file, this was completed by Ghazala at their PCPs office in December of this year. Patient also has a history of prostate cancer. He has been seen by oncology and urology. Completed radiation treatment.?Brachytherapy Patient is at multiple falls over the last year. This first time he has had significant fracture and injury. First hospitalization. Current Medications Current Medications Current Medications: Current Medications Generic Name Dose Route Start Last Admin Trade Name Freq PRN Reason Stop Dose Admin Insulin Human Lispro 1 - 5 unit 07/03/25 08:00 Insulin Lispro 300 Unit/3 Ml Pen SUBQ 0800,1200,1700,2100 [facility] Protocol Objective Vital Signs/Intake & Output Reviewed Vital Signs: Yes Vital Signs: Vital Signs x48h Temp Pulse Resp BP Pulse Ox 07/03/25 05:33 37.1 C 70 18 150/100 H 97 07/03/25 04:00 69 18 161/103 H 99 07/03/25 00:35 37 C 71 20 179/103 H 94 Intake & Output: Intake & Output 06/30/25 07/01/25 07/02/25 07/03/25 23:59 23:59 23:59 23:59 Intake Total 1000 / 1000 Balance 1000 / 1000 Weight (kg) 81 kg Objective Comments/Other: GEN: No acute distress. Resting comfortably. HEENT: NC/AT, normal appearance of external ears and nose. Hearing baseline. Cardiac: Regular rate and rhythm, no murmurs. Euvolemic on exam. Pulm: Lungs CTA bilaterally, no cough, no wheezes. No adventitial lung sounds. Normal effort on room air. Abdomen: Soft, nontender, nondistended. No rebound or guarding Extremities: Moves all 4 extremities equally. Normal tone. Neuro: Face symmetric, CN II through XII intact grossly. No focal neurologic deficits. Forgetful, occasionally confabulatory. Coarse intention tremor. Fine resting tremor. Cogwheel rigidity in the upper extremities. Psych: Mood euthymic with congruent affect. Lab Results 07/02/25 18:38 07/02/25 19:15 Other Labs: Lab Results x24hrs 07/02/25 07/02/25 07/02/25 Range/Units 21:22 19:15 18:38 WBC 7.6 (4.8-10.8) x10^3/uL RBC 4.45 L (4.70-6.10) 10^6/uL Hgb 13.8 L (14.0-18.0) g/dL Hct 41.2 L (42.0-52.0) % MCV 92.6 (80.0-94.0) fL MCH 31.0 (27.0-31.0) pg MCHC 33.5 (32.0-36.0) g/dL RDW 13.0 (12.0-15.0) % Plt Count 146 (130-450) 10^3/uL MPV 9.6 (7.4-11.4) fL Neut # (Auto) 5.2 (1.5-6.6) 10^3/uL Lymph # (Auto) 1.5 (1.5-3.5) 10^3/uL Robeson # (Auto) 0.7 (0.0-1.0) 10^3/uL Eos # (Auto) 0.1 (0.0-0.7) 10^3/uL Baso # (Auto) 0.0 (0.0-0.1) 10^3/uL Absolute Nucleated RBC 0.00 x10^3/uL Nucleated RBC % 0.0 /100WBC Sodium 137 (135-145) mmol/L Potassium 4.7 H (3.5-4.5) mmol/L Chloride 105 (101-111) mmol/L Carbon Dioxide 25 (21-32) mmol/L Anion Gap 7.0 (6-13) BUN 26 H (6-20) mg/dL Creatinine 1.2 (0.6-1.3) mg/dL Estimated GFR (MDRD) 59 L (>89) Glucose 110 H (74-104) mg/dL Calcium 9.7 (8.5-10.3) mg/dL Total Bilirubin 0.6 (0.2-1.0) mg/dL AST 16 (10-42) IU/L ALT 18 (10-60) IU/L Alkaline Phosphatase 76 (42-121) IU/L Total Protein 7.3 (6.4-8.9) g/dL Albumin 4.4 (3.2-5.5) g/dL Globulin 2.9 (2.1-4.2) g/dL Albumin/Globulin Ratio 1.5 (1.0-2.2) Urine Color YELLOW Urine Clarity CLEAR (CLEAR) Urine pH 6.5 (5.0-7.5) PH Ur Specific [place] 1.015 (1.002-1.030) Urine Protein TRACE (NEGATIVE) mg/dL Urine Glucose (UA) NEGATIVE (NEGATIVE) mg/dL Urine Ketones NEGATIVE (NEGATIVE) mg/dL Urine Occult Blood TRACE-INTACT (NEGATIVE) Urine Nitrite NEGATIVE (NEGATIVE) Urine Bilirubin NEGATIVE (NEGATIVE) Urine Urobilinogen 0.2 (NORMAL) (NORMAL) E.U./dL Ur Leukocyte Esterase NEGATIVE (NEGATIVE) Urine RBC 6-10 H (0-5) /HPF Urine WBC 0-3 (0-3) /HPF Ur Squamous Epith Cells NONE SEEN (<= Few) Urine Bacteria Few (None Seen) /HPF Ur Microscopic Review INDICATED Urine Culture Comments NOT INDICATED Urine Opiates Screen NEGATIVE (NEGATIVE) Ur Buprenorphine Scrn NEGATIVE (NEGATIVE) Ur Oxycodone Screen NEGATIVE (NEGATIVE) Urine Methadone Screen NEGATIVE (NEGATIVE) Urine Fentanyl Screen Negative (NEGATIVE) Ur Barbiturates Screen NEGATIVE (NEGATIVE) Ur Tricyclics Screen NEGATIVE (NEGATIVE) Ur Phencyclidine Scrn NEGATIVE (NEGATIVE) Ur Amphetamine Screen NEGATIVE (NEGATIVE) U Methamphetamines Scrn NEGATIVE (NEGATIVE) U Benzodiazepines Scrn NEGATIVE (NEGATIVE) Urine Cocaine Screen NEGATIVE (NEGATIVE) U Cannabinoids Screen NEGATIVE (NEGATIVE) Ur Drug Screen Comment CUTOFF CONC BELOW: Ethyl Alcohol < 10.0 mg/dL Assessment/Plan Problem List (1) Recurrent falls: (2) Fracture of lumbar spine: Qualifiers: Encounter type: initial encounter Fracture morphology: unspecified fracture morphology Fracture type: closed Lumbar vertebra fracture level: u nspecified lumbar vertebra Qualified Code(s): S32.009A - Unspecified fracture of unspecified lumbar vertebra, initial encounter for closed fracture (3) Closed rib fracture: Impression: Patient a ground-level fall at home. Has a history of dysautonomia in the setting of his Parkinson's as below. He has been having more falls over the last few months. Resultant L1 and L2 compressions fractures, left ninth rib fracture. Apparently was in a lot of pain on the night of admission. Admitted for pain control. His pain seems better. - Will schedule Tylenol 1 g 3 times daily - As needed oxycodone - Lidocaine patch - PT eval - Surgery reportedly following, will reach out to them Qualifiers: Encounter type: initial encounter Laterality: left Rib fracture type: single rib Qualified Code(s): S22.32XA - Fracture of one rib, left side, initial encounter for closed fracture (4) Parkinsons disease: (5) Orthostatic hypotension due to Parkinson disease: Impression: Patient with longstanding history of Parkinson's disease. He does not feel like he has much tremor at baseline. He is on Sinemet. He has been found to have worsened hypotension and dysautonomia as well as orthostatic hypotension in the past. He has been taken off of antihypertensives. Interestingly, he was discussed to start on midodrine in the community, but was prescribed Strattera twice daily. Patient does have a DNR/comfort measure POLST. - Given valid POLST, change status to DNR, patient in agreement - Continue home Sinemet 37.5/150 3 times daily - Will start on midodrine twice daily, Cut back to every morning if having significant postural hypertension - Avoid starting on any antihypertensives as it will precipitate his symptoms. - Continue scheduled compression stockings - Will discuss with surgery whether abdominal binder is appropriate given his rib fracture - Will attempt to discuss with his family as well today. (6) Prostate cancer: Impression: History of prostate cancer. Status post radiation therapy completed earlier this year. I am unclear on his prognosis. - Continue tamsulosin (7) GERD (gastroesophageal reflux disease): Impression: Stable. 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 GFR 59. Creatinine baseline at 1.2. Making good urine. Mild hyperkalemia on arrival at 4.7. Small bolus of IV fluids in the ED. - Monitor BMP Now and in AM (9) Type 2 diabetes mellitus: Impression: History of type 2 diabetes at baseline. Last A1c was 5.5% in May 2025. Initial blood sugars 110. He is on metformin 500 mg twice daily prior to this hospitalization. Was started initially on sliding scale insulin - Normal renal function, resume home metformin - Consider discontinuing glycemic control agents given age - DC blood glucose checks - BMP as above
[2025-07-03] MEDS ORDERED: SODIUM CHLORIDE FLUSH 0.9% 10 ML SYRINGE IVP PRN (08:56)
[2025-07-03] MEDS ORDERED: MORPHINE 2 MG/ML CARPUJECT IVP PRN (08:56)
[2025-07-03] MEDS ORDERED: ACETAMINOPHEN 325 MG TABLET PO PRN (08:56)
[2025-07-03] MEDS ORDERED: HYDROcod/ACETAM 5/325 MG TABLET PO PRN (08:56)
[2025-07-03] MEDS ORDERED: ONDANSETRON 4 MG/2 ML VIAL IVP PRN (08:56)
[2025-07-03] MEDS: INSULIN LISPRO 300 UNIT/3 ML PEN SUBQ SCH (10:15)
[2025-07-03] MEDS: TAMSULOSIN 0.4 MG CAPSULE PO SCH (10:19)
[2025-07-03] MEDS: CARBIDOPA/LEVODOPA 25 MG/100 MG TABLET PO SCH (10:19)
[2025-07-03] MEDS: MEMANTINE 5 MG TABLET PO SCH (10:19)
[2025-07-03] MEDS: SODIUM CHLORIDE FLUSH 0.9% 10 ML SYRINGE IVP SCH (10:20)
[2025-07-03] MEDS ORDERED: oxyCODONE 5 MG TABLET PO PRN (11:25)
[2025-07-03] MEDS ORDERED: ONDANSETRON ODT 4 MG TABLET TL PRN (11:26)
[2025-07-03 12:14] LABS: BUN - BLOOD UREA NITROGEN 24.0 mg/dL (6-20); CARBON DIOXIDE - CO2 24.0 mmol/L (21-32); CREATININE 1.2 mg/dL (0.6-1.3); GFR - MDRD 59.0 (>89)
[2025-07-03] MEDS: ESCITALOPRAM 10 MG TABLET PO SCH (12:47)
[2025-07-03] MEDS: ACETAMINOPHEN 500 MG TABLET PO SCH (12:47)
[2025-07-03] MEDS: MIDODRINE 10 MG TABLET PO SCH (12:47)
--- NOTE | 2025-07-03 16:31 | PT Plan of Care ---
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 PMH includes PD, please see chart for complete medical hx. The pt was received resting comfortably supine in bed and presented today with decreased B UE and LE strength, decreased activity tolerance, attenuated motor planning, and increased LBP all of which limited his tolerance with functional mobility. At this time recommend continued skilled PT intervention while in the acute setting and DC to SNF for further rehab once pt medically stable. This plan was discussed with the pt and he was in agreement with this. At the end of the session the pt was supine in bed with call light in reach, bed alarm on, and all needs met. RN and MD updated on pt's status and DC rec. PATIENT/FAMILY GOALS Patient/Family Goals: To get stronger and stop falling GOALS Improve supine to sit to:: Minimal Assist Improve sit to stand to:: Minimal Assist Improve pivot transfer ability to:: Minimal Assist Improve sit to supine to:: Minimal Assist Improve gait ability to:: CGA Advance Assistive Device to:: Front Wheeled Walker Increase distance walked to (in feet):: 100 PLAN Frequency: 1-2x/day Duration: Until goals are met DISCHARGE RECOMMENDATIONS Discharge Location: Residential Facility Support/Services Needed: With assist Other Discharge Equipment: pt owns all recommended DME Transport Needs at Discharge: Personal vehicle
--- NOTE | 2025-07-03 18:09 | ADVANCE CARE PLANNING NOTE ---
Advance Care Planning Planning Encounter Date: 07/03/25 Time: 11:21 Parties in Attendance: Discussed separately by phone with Jacqui, the patient's spouse. Discussed separately by phone with Kassy the patient's daughter. Discussed in person with Rodney. Decisional Capacity of the Patient: Patient is decisional, but frequently forgetful. He is aware of his deficits Diagnosis for Encounter (1) Recurrent falls: (2) Fracture of lumbar spine: Qualifiers: Encounter type: initial encounter Fracture morphology: unspecified fracture morphology Fracture type: closed Lumbar vertebra fracture level: unspecified lumbar vertebra Qualified Code(s): S32.009A - Unspecified fracture of unspecified lumbar vertebra, initial encounter for closed fracture (3) Closed rib fracture: Qualifiers: Encounter type: initial encounter Laterality: left Rib fracture type: single rib Qualified Code(s): S22.32XA - Fracture of one rib, left side, initial encounter for closed fracture (4) Parkinsons disease: (5) Orthostatic hypotension due to Parkinson disease: (6) Prostate cancer: (7) GERD (gastroesophageal reflux disease): (8) Stage 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 He lives here with his , Jacqui. He is an adult daughter, Kassy who is an websphere commerce architect around [place]. She is very involved with their care. She comes out regularly to help with grocery shopping, care around the house. Efren's recently had a stroke earlier this year. She has been recovering reasonably well from this. Functionally she is doing well, but has some executive issues. She also has some vision troubles that makes it difficult for her to drive. Kassy has asked Jacqui not to drive. Kassy comes out regularly, however she has a teenage daughter that lives at home. She does not like leaving her overnight. Additionally at this time, Kassy's spouse is on a business trip out of the country. Objective/Medical Story: He has had a diagnosis of parkinsonism for some time. This is become progressive. He has had a precipitous decline since March. He has fallen 3 times in the last week. He seems to be falling much more frequently over the past few months. In the week preceding admission, he fell 3 times, the most significant of which was a hard fall onto his walker. Thought to be where he fractured a rib. He also has 2 spinal compression fractures of L1 and L2. He was seen in [place] by a Parkinson specialist, and diagnosed with Lewy body dementia. He has been on Sinemet for some time. His daughter tells me that he never had much of a tremor. His dose has been increased on his Sinemet recently. He has had some intermittent hallucinations from his carbidopa levodopa. He is now having more orthostatic symptoms. His blood pressure at his primary care office was reportedly 80/50. Suspected dysautonomia. He was only seen in consultation in [place], he was sent back to his primary neurologist at [facility]. He has not yet had any treatment plan changes. Concomitantly he also has a history of prostate cancer. He has had radiation treatment. He is thought to be in clinical remission. Goals of Care: Efren met with his primary care doctor earlier this year in December. They discussed a POLST form. He filled out a POLST that described that he was DNR/comfort measures. He was clear at that visit that he did not want resuscitative efforts if he were to . He would not want to be on machines. He would not want to be intubated. Both from their descriptions of comfort measures, and their actions since then including following up with specialist in [place], they seem to be still pursuing some limited life-sustaining interventions. Not unreasonable. Efren would be amenable to further treatments if offered. I described the option of an involving palliative care and his treatment planning. I described that he will likely have progression of his disease over the coming year and he may within the coming year. It would be helpful to have experts on board to help prognosticate and determine when it is most appropriate to transition to a more comfort focused approach. Kassy was incr edibly receptive of this, she was grateful to have support, and states that there is little discussion of prognostication that occurred previously. Plan: - Patient is DNR this hospitalization, CODE STATUS changed - Will need new POLST completed prior to discharge, likely DNR/selective intervention - Kassy will be at bedside 07/04 - Kassy is POA, I am hoping Kassy brings along this documentation tomorrow - Palliative care referral Code Status: Do Not Attempt Resuscitation Time spent on advance care plannin
[2025-07-04 05:03] LABS: BUN - BLOOD UREA NITROGEN 26.0 mg/dL (6-20); CARBON DIOXIDE - CO2 26.0 mmol/L (21-32); CREATININE 1.2 mg/dL (0.6-1.3); GFR - MDRD 59.0 (>89)
--- NOTE | 2025-07-04 10:28 | PROVIDER PROGRESS NOTE ---
Subjective Subjective Subjective: Patient is feeling improved in terms of his pain today. He still has some lower back pain. He has had no shortness of breath, chest pain. He states he does feel a little confused and loopy. Current Medications Current Medications Current Medications: Current Medications Generic Name Dose Route Start Last Admin Trade Name Martell PRN Reason Stop Dose Admin Acetaminophen 1,000 mg 07/03/25 12:00 07/04/25 05:27 Acetaminophen 500 Mg Tablet PO 1,000 mg TID LUDIN Administration Carbidopa/Levodopa 1.5 tab 07/03/25 08:56 07/04/25 05:27 Carbidopa/Levodopa 25 Mg/100 Mg Tablet PO 1.5 tab TID LUDIN Administration Escitalopram Oxalate 20 mg 07/03/25 13:00 07/04/25 08:35 Escitalopram 10 Mg Tablet PO 20 mg DAILY LUDIN Administration Lidocaine 1 patch 07/03/25 12:00 07/04/25 08:36 Lidocaine Patch 4% TOP 1 patch DAILY LUDIN Administration Memantine 10 mg 07/03/25 09:00 07/04/25 08:35 Memantine 5 Mg Tablet PO 10 mg BID LUDIN Administration Metformin HCl 500 mg 07/03/25 21:00 07/04/25 08:35 Metformin 500 Mg Tablet PO 500 mg BID LUDIN Administration Midodrine 10 mg 07/03/25 12:00 07/04/25 08:36 Midodrine 10 Mg Tablet PO 10 mg BID LUDIN Administration Morphine Sulfate 2 mg 07/03/25 08:56 Morphine 2 Mg/Ml Carpuject IVP Q2HR PRN Pain 8 to 10 Olanzapine 5 mg 07/03/25 18:59 Olanzapine Odt 5 Mg Tablet TL Q12H PRN Agitation Ondansetron HCl 4 mg 07/03/25 08:56 Ondansetron 4 Mg/2 Ml Vial IVP Q6HR PRN Nausea / Vomiting Ondansetron HCl 4 mg 07/03/25 11:26 Ondansetron Odt 4 Mg Tablet TL Q4HR PRN Nausea / Vomiting Oxycodone HCl 5 mg 07/03/25 11:25 Oxycodone 5 Mg Tablet PO Q4HR PRN Moderate Pain (Level 4-6) Sodium Chloride 10 ml 07/03/25 08:56 Sodium Chloride Flush 0.9% 10 Ml Syringe IVP PRN PRN NEEDED PER PROVIDER ORDERS Sodium Chloride 10 ml 07/03/25 09:00 07/04/25 08:36 Sodium Chloride Flush 0.9% 10 Ml Syringe IVP 10 ml 0100,0900,1700 LUDIN Administration Tamsulosin HCl 0.4 mg 07/03/25 09:00 07/04/25 08:35 Tamsulosin 0.4 Mg Capsule PO 0.4 mg DAILY LUDIN Administration Objective Vital Signs/Intake & Output Reviewed Vital Signs: Yes Vital Signs: Vital Signs x48h Temp Pulse Resp BP Pulse Ox 07/04/25 08:56 98.8 F 83 28 H 119/75 98 Intake & Output: Intake & Output 07/01/25 07/02/25 07/03/25 07/04/25 23:59 23:59 23:59 23:59 Intake Total 1000 / 1000 480 / 480 780 / 780 Output Total 50 / 50 Balance 1000 / 1000 480 / 480 730 / 730 Weight (kg) 81 kg 81 kg Objective Comments/Other: GEN: No acute distress. Resting comfortably. HEENT: NC/AT, normal appearance of external ears and nose. Hearing baseline. Cardiac: Regular rate and rhythm, no murmurs. Euvolemic on exam. Pulm: Lungs CTA bilaterally, no cough, no wheezes. No adventitial lung sounds. Normal effort on room air. Abdomen: Soft, nontender, nondistended. No rebound or guarding Extremities: Moves all 4 extremities equally. Normal tone. Neuro: Face symmetric, CN II through XII intact grossly. No focal neurologic deficits. Forgetful, occasionally confabulatory. Coarse intention tremor. Fine resting tremor. Cogwheel rigidity in the upper extremities. Psych: Mood euthymic with congruent affect. Lab Results 07/02/25 18:38 07/04/25 04:24 Other Labs: Lab Results x24hrs 07/04/25 07/03/25 Range/Units 04:24 11:50 Sodium 138 136 (135-145) mmol/L Potassium 4.1 3.9 (3.5-4.5) mmol/L Chloride 106 104 (101-111) mmol/L Carbon Dioxide 26 24 (21-32) mmol/L Anion Gap 6.0 8.0 (6-13) BUN 26 H 24 H (6-20) mg/dL Creatinine 1.2 1.2 (0.6-1.3) mg/dL Estimated GFR (MDRD) 59 L 59 L (>89) Glucose 98 150 H (74-104) mg/dL Calcium 9.3 9.6 (8.5-10.3) mg/dL Assessment/Plan Problem List (1) Recurrent falls: (2) Fracture of lumbar spine: Qualifiers: Encounter type: initial encounter Fracture morphology: unspecified fracture morphology Fracture type: closed Lumbar vertebra fracture level: u nspecified lumbar vertebra Qualified Code(s): S32.009A - Unspecified fracture of unspecified lumbar vertebra, initial encounter for closed fracture (3) Closed rib fracture: Impression: The following plan is for the above three assessments. Patient a ground-level fall at home. Has a history of dysautonomia in the setting of his Parkinson's as below. He has been having more falls over the last few months. Resultant L1 and L2 compressions fractures, left ninth rib fracture. Patient was admitted for pain control, improved. Continue scheduled Tylenol 1 g 3 times daily, as needed oxycodone. Has not required parenteral narcotics. PT was consulted, recommend SNF. Patient and patient's family, as well as social work are working on appropriate placement. Qualifiers: Encounter type: initial encounter Laterality: left Rib fracture type: single rib Qualified Code(s): S22.32XA - Fracture of one rib, left side, initial encounter for closed fracture (4) Parkinsons disease: (5) Orthostatic hypotension due to Parkinson disease: Impression: The following plan is for the above two assessments: Patient with longstanding history of Parkinson's disease. He does not feel like he has much tremor at baseline. He is on Sinemet. He has been found to have worsened hypotension and dysautonomia as well as orthostatic hypotension in the past. Has been taken off of antihypertensives. Interestingly, he was discussed to start on midodrine in the community, but was prescribed Strattera twice daily. Given valid POLST, change status to DNR, patient in agreement. Continue home Sinemet 37.5/150 3 times daily Was started on midodrine twice daily, cut back to every morning if having significant postural hypertension. Continue scheduled compression stockings. (6) Prostate cancer: Impression: History of prostate cancer. Status post radiation therapy completed earlier this year. I am unclear on his prognosis. Continue tamsulosin. (7) GERD (gastroesophageal reflux disease): Impression: Stable. Continue on formulary PPI daily. 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 GFR 59. Creatinine baseline at 1.2. Making good urine. Mild hyperkalemia on arrival at 4.7. Small bolus of IV fluids in the ED. Continue to monitor BMP. (9) Type 2 diabetes mellitus: Impression: History of type 2 diabetes at baseline. Last A1c was 5.5% in May 2025.
--- NOTE | 2025-07-04 17:49 | PHARMACY PROGRESS NOTE ---
Best Possible Medication History Admit Date and Time: 07/03/25 [id number] Home Medications Medication Instructions Recorded Confirmed Type carbidopa 25 mg-levodopa 100 mg 1.5 tab PO TID 07/04/25 History tablet (Sinemet) memantine 10 mg tablet (Namenda) 10 mg PO BID #180 tab s 05/31/25 07/04/25 Rx tamsulosin 0.4 mg capsule 0.4 mg PO DAILY #90 caps 07/04/25 Rx atomoxetine 10 mg capsule 10 mg PO BID #60 caps 07/04/25 Rx metformin 500 mg tablet 500 mg PO BID #180 tabs 06/1807/04/25 Rx escitalopram oxalate 20 mg tablet 20 mg PO DAILY 07/0407/04/25 History Processed by: Pharmacy Medications reviewed in ED?: Yes Medication History completed: Yes Patient Interview: Pt unable to participate Secondary Source(s): Insurance records [facility] Statement: Only medications verified by insurance records and pharmacy records appear on this list. patient was not able to give any information regarding home me dications. As the person ultimately responsible for medication therapy, providers are able to order a medication from an existing home medication list in [facility] via the "Reconcile Routine" prior to Confirmation of that medication by application support consultant. Such practice is discouraged except when the physician, in their clinical judgment, deems that a medical need exists for a medication without regard to previous use.
[2025-07-05 04:54] LABS: HCT - HEMATOCRIT 35.8 % (42.0-52.0); HGB - HEMOGLOBIN 12.2 g/dL (14.0-18.0); MEAN PLATELET VOLUME 9.5 fL (7.4-11.4); PLT - PLATELET COUNT 150.0 10^3/uL (130-450); RED CELL DISTRIBUTION WIDTH 13.1 % (12.0-15.0)
[2025-07-05 05:15] LABS: BUN - BLOOD UREA NITROGEN 20.0 mg/dL (6-20); CARBON DIOXIDE - CO2 26.0 mmol/L (21-32); CREATININE 1.0 mg/dL (0.6-1.3); GFR - MDRD 73.0 (>89)
--- NOTE | 2025-07-05 12:22 | PROVIDER PROGRESS NOTE ---
Subjective Subjective Subjective: Patient is feeling improved in terms of his pain today. He still has some lower back pain. He has had no shortness of breath, chest pain. He states he does feel a little confused and loopy. He also complains of a choking sensation, especially early in the morning. He is open to working with speech therapy today. He is medically cleared for discharge. Awaiting SNF placement. Current Medications Current Medications Current Medications: Current Medications Generic Name Dose Route Start Last Admin Trade Name Martell PRN Reason Stop Dose Admin Acetaminophen 1,000 mg 07/03/25 12:00 07/05/25 06:00 Acetaminophen 500 Mg Tablet PO 1,000 mg TID LUDIN Administration Carbidopa/Levodopa 1.5 tab 07/03/25 08:56 07/05/25 06:00 Carbidopa/Levodopa 25 Mg/100 Mg Tablet PO 1.5 tab TID LUDIN Administration Escitalopram Oxalate 20 mg 07/03/25 13:00 07/05/25 08:47 Escitalopram 10 Mg Tablet PO 20 mg DAILY LUDIN Administration Lidocaine 1 patch 07/03/25 12:00 07/05/25 08:48 Lidocaine Patch 4% TOP Not Given DAILY LUDIN Memantine 10 mg 07/03/25 09:00 07/05/25 08:46 Memantine 5 Mg Tablet PO 10 mg BID LUDIN Administration Metformin HCl 500 mg 07/03/25 21:00 07/05/25 08:47 Metformin 500 Mg Tablet PO 500 mg BID LUDIN Administration Midodrine 10 mg 07/06/25 09:00 Midodrine 10 Mg Tablet PO DAILY LUDIN Morphine Sulfate 2 mg 07/03/25 08:56 Morphine 2 Mg/Ml Carpuject IVP Q2HR PRN Pain 8 to 10 Olanzapine 5 mg 07/03/25 18:59 Olanzapine Odt 5 Mg Tablet TL Q12H PRN Agitation Ondansetron HCl 4 mg 07/03/25 08:56 Ondansetron 4 Mg/2 Ml Vial IVP Q6HR PRN Nausea / Vomiting Ondansetron HCl 4 mg 07/03/25 11:26 Ondansetron Odt 4 Mg Tablet TL Q4HR PRN Nausea / Vomiting Oxycodone HCl 5 mg 07/03/25 11:25 Oxycodone 5 Mg Tablet PO Q4HR PRN Moderate Pain (Level 4-6) Sodium Chloride 10 ml 07/03/25 08:56 Sodium Chloride Flush 0.9% 10 Ml Syringe IVP PRN PRN NEEDED PER PROVIDER ORDERS Sodium Chloride 10 ml 07/03/25 09:00 07/05/25 08:47 Sodium Chloride Flush 0.9% 10 Ml Syringe IVP 10 ml 0100,0900,1700 LUDIN Administration Tamsulosin HCl 0.4 mg 07/03/25 09:00 07/05/25 08:47 Tamsulosin 0.4 Mg Capsule PO 0.4 mg DAILY LUDIN Administration Objective Vital Signs/Intake & Output Reviewed Vital Signs: Yes Vital Signs: Vital Signs x48h Temp Pulse Resp BP Pulse Ox 07/05/25 07:32 97.7 F 70 20 157/90 H 98 Intake & Output: Intake & Output 07/02/25 07/03/25 07/04/25 07/05/25 23:59 23:59 23:59 23:59 Intake Total 1000 / 1000 480 / 480 1960 / 1960 440 / 440 Output Total 150 / 150 Balance 1000 / 1000 480 / 480 1810 / 1810 440 / 440 Weight (kg) 81 kg 81 kg Objective Comments/Other: GEN: No acute distress. Resting comfortably. HEENT: NC/AT, normal appearance of external ears and nose. Hearing baseline. Cardiac: Regular rate and rhythm, no murmurs. Euvolemic on exam. Pulm: Lungs CTA bilaterally, no cough, no wheezes. No adventitial lung sounds. Normal effort on room air. Abdomen: Soft, nontender, nondistended. No rebound or guarding Extremities: Moves all 4 extremities equally. Normal tone. Neuro: Face symmetric, CN II through XII intact grossly. No focal neurologic deficits. Forgetful, occasionally confabulatory. Coarse intention tremor. Fine resting tremor. Cogwheel rigidity in the upper extremities. Psych: Mood euthymic with congruent affect. Lab Results 07/05/25 04:32 07/05/25 04:32 Other Labs: Lab Results x24hrs 07/05/25 Range/Units 04:32 WBC 4.4 L (4.8-10.8) x10^3/uL RBC 3.97 L (4.70-6.10) 10^6/uL Hgb 12.2 L (14.0-18.0) g/dL Hct 35.8 L (42.0-52.0) % MCV 90.2 (80.0-94.0) fL MCH 30.7 (27.0-31.0) pg MCHC 34.1 (32.0-36.0) g/dL RDW 13.1 (12.0-15.0) % Plt Count 150 (130-450) 10^3/uL MPV 9.5 (7.4-11.4) fL Sodium 139 (135-145) mmol/L Potassium 3.9 (3.5-4.5) mmol/L Chloride 107 (101-111) mmol/L Carbon Dioxide 26 (21-32) mmol/L Anion Gap 6.0 (6-13) BUN 20 (6-20) mg/dL Creatinine 1.0 (0.6-1.3) mg/dL Estimated GFR (MDRD) 73 L (>89) Glucose 96 (74-104) mg/dL Calcium 9.2 (8.5-10.3) mg/dL Magnesium 1.9 (1.7-2.3) mg/dL Assessment/Plan Problem List (1) Recurrent falls: (2) Fracture of lumbar spine: Qualifiers: Encounter type: initial encounter Fracture morphology: unspecified fracture morphology Fracture type: closed Lumbar vertebra fracture level: u nspecified lumbar vertebra Qualified Code(s): S32.009A - Unspecified fracture of unspecified lumbar vertebra, initial encounter for closed fracture (3) Closed rib fracture: Impression: The following plan is for the above three assessments. Patient a ground-level fall at home. Has a history of dysautonomia in the setting of his Parkinson's as below. He has been having more falls over the last few months. Resultant L1 and L2 compressions fractures, left ninth rib fracture. Patient was admitted for pain control, improved. Continue scheduled Tylenol 1 g 3 times daily, as needed oxycodone. Has not required parenteral narcotics. PT was consulted, recommend SNF. Patient and patient's family, as well as social work are working on appropriate placement. Qualifiers: Encounter type: initial encounter Laterality: left Rib fracture type: single rib Qualified Code(s): S22.32XA - Fracture of one rib, left side, initial encounter for closed fracture (4) Parkinsons disease: (5) Orthostatic hypotension due to Parkinson disease: Impression: The following plan is for the above two assessments: Patient with longstanding history of Parkinson's disease. He does not feel like he has much tremor at baseline. He is on Sinemet. He has been found to have worsened hypotension and dysautonomia as well as orthostatic hypotension in the past. Has been taken off of antihypertensives. Interestingly, he was discussed to start on midodrine in the community, but was prescribed Strattera twice daily. Decreased to once a day due hypertension. Given valid POLST, change status to DNR, patient in agreement. Continue home Sinemet 37.5/150 3 times daily Was started on midodrine twice daily, cut back to every morning today. Continue scheduled compression stockings. (6) Prostate cancer: Impression: History of prostate cancer. Status post radiation therapy completed earlier this year. I am unclear on his prognosis. Continue tamsulosin. (7) GERD (gastroesophageal reflux disease): Impression: Stable. Continue on formulary PPI daily. Did have a sense of choking this morning. Speech therapy evaluation ordered. 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 GFR 59. Creatinine baseline at 1.2. Making good urine. Mild hyperkalemia on arrival at 4.7. Small bolus of IV fluids in the ED. Continue to monitor BMP. (9) Type 2 diabetes mellitus: Impression: History of type 2 diabetes at baseline. Last A1c was 5.5% in May 2025.
[2025-07-06 06:36] LABS: BUN - BLOOD UREA NITROGEN 19.0 mg/dL (6-20); CARBON DIOXIDE - CO2 28.0 mmol/L (21-32); CREATININE 1.1 mg/dL (0.6-1.3); GFR - MDRD 66.0 (>89)
[2025-07-06] MEDS: MIDODRINE 10 MG TABLET PO SCH (09:00)
--- NOTE | 2025-07-06 11:34 | PROVIDER PROGRESS NOTE ---
Subjective Subjective Subjective: Patient is feeling improved in terms of his pain today. He still has some lower back pain. He has had no shortness of breath, chest pain. He states he does feel a little confused and loopy. Spoke with PT today about completing Chas-Hallpike or Kin maneuver to test for BPPV. She has seen him in the outpatient previously, and thinks his dizziness is more likely related to autonomic dysfunction due to his Parkinson's disease. He is medically cleared for discharge. Awaiting SNF placement. Current Medications Current Medications Current Medications: Current Medications Generic Name Dose Route Start Last Admin Trade Name Frenevaeh PRN Reason Stop Dose Admin Acetaminophen 1,000 mg 07/03/25 12:00 07/06/25 06:33 Acetaminophen 500 Mg Tablet PO 1,000 mg TID LUDIN Administration Carbidopa/Levodopa 1.5 tab 07/03/25 08:56 07/06/25 06:25 Carbidopa/Levodopa 25 Mg/100 Mg Tablet PO 1.5 tab TID LUDIN Administration Escitalopram Oxalate 20 mg 07/03/25 13:00 07/06/25 09:01 Escitalopram 10 Mg Tablet PO 20 mg DAILY LUDIN Administration Lidocaine 1 patch 07/03/25 12:00 07/06/25 09:02 Lidocaine Patch 4% TOP Not Given DAILY LUDIN Memantine 10 mg 07/03/25 09:00 07/06/25 09:01 Memantine 5 Mg Tablet PO 10 mg BID LUDIN Administration Metformin HCl 500 mg 07/03/25 21:00 07/06/25 09:01 Metformin 500 Mg Tablet PO 500 mg BID LUDIN Administration Midodrine 10 mg 07/06/25 09:00 07/06/25 09:00 Midodrine 10 Mg Tablet PO Not Given DAILY LUDIN Morphine Sulfate 2 mg 07/03/25 08:56 Morphine 2 Mg/Ml Carpuject IVP Q2HR PRN Pain 8 to 10 Olanzapine 5 mg 07/03/25 18:59 Olanzapine Odt 5 Mg Tablet TL Q12H PRN Agitation Ondansetron HCl 4 mg 07/03/25 08:56 Ondansetron 4 Mg/2 Ml Vial IVP Q6HR PRN Nausea / Vomiting Ondansetron HCl 4 mg 07/03/25 11:26 Ondansetron Odt 4 Mg Tablet TL Q4HR PRN Nausea / Vomiting Oxycodone HCl 5 mg 07/03/25 11:25 Oxycodone 5 Mg Tablet PO Q4HR PRN Moderate Pain (Level 4-6) Sodium Chloride 10 ml 07/03/25 08:56 Sodium Chloride Flush 0.9% 10 Ml Syringe IVP PRN PRN NEEDED PER PROVIDER ORDERS Sodium Chloride 10 ml 07/03/25 09:00 07/06/25 09:02 Sodium Chloride Flush 0.9% 10 Ml Syringe IVP 10 ml 0100,0900,1700 LUDIN Administration Tamsulosin HCl 0.4 mg 07/03/25 09:00 07/06/25 09:01 Tamsulosin 0.4 Mg Capsule PO 0.4 mg DAILY LUDIN Administration Objective Vital Signs/Intake & Output Reviewed Vital Signs: Yes Vital Signs: Vital Signs x48h Temp Pulse Resp BP Pulse Ox 07/06/25 08:10 98.4 F 74 16 156/100 H 94 Intake & Output: Intake & Output 07/03/25 07/04/25 07/05/25 07/06/25 23:59 23:59 23:59 23:59 Intake Total 480 / 480 1960 / 1960 1730 / 1730 340 / 340 Output Total 150 / 150 Balance 480 / 480 1810 / 1810 1730 / 1730 340 / 340 Weight (kg) 81 kg Objective Comments/Other: GEN: No acute distress. Resting comfortably. HEENT: NC/AT, normal appearance of external ears and nose. Hearing baseline. Cardiac: Regular rate and rhythm, no murmurs. Euvolemic on exam. Pulm: Lungs CTA bilaterally, no cough, no wheezes. No adventitial lung sounds. Normal effort on room air. Abdomen: Soft, nontender, nondistended. No rebound or guarding Extremities: Moves all 4 extremities equally. Normal tone. Neuro: Face symmetric, CN II through XII intact grossly. No focal neurologic deficits. Forgetful, occasionally confabulatory. Coarse intention tremor. Fine resting tremor. Cogwheel rigidity in the upper extremities. Psych: Mood euthymic with congruent affect. Lab Results 07/05/25 04:32 07/06/25 06:01 Other Labs: Lab Results x24hrs 07/06/25 Range/Units 06:01 Sodium 140 (135-145) mmol/L Potassium 4.0 (3.5-4.5) mmol/L Chloride 107 (101-111) mmol/L Carbon Dioxide 28 (21-32) mmol/L Anion Gap 5.0 L (6-13) BUN 19 (6-20) mg/dL Creatinine 1.1 (0.6-1.3) mg/dL Estimated GFR (MDRD) 66 L (>89) Glucose 90 (74-104) mg/dL Calcium 9.3 (8.5-10.3) mg/dL Assessment/Plan Problem List (1) Recurrent falls: (2) Fracture of lumbar spine: Qualifiers: Encounter type: initial encounter Fracture morphology: unspecified fracture morphology Fracture type: closed Lumbar vertebra fracture level: u nspecified lumbar vertebra Qualified Code(s): S32.009A - Unspecified fracture of unspecified lumbar vertebra, initial encounter for closed fracture (3) Closed rib fracture: Impression: The following plan is for the above three assessments. Patient a ground-level fall at home. Has a history of dysautonomia in the setting of his Parkinson's as below. He has been having more falls over the last few months. Resultant L1 and L2 compressions fractures, left ninth rib fracture. Patient was admitted for pain control, improved. Continue scheduled Tylenol 1 g 3 times daily, as needed oxycodone. Has not required parenteral narcotics. PT was consulted, recommend SNF. Patient and patient's family, as well as social work are working on appropriate placement. Qualifiers: Encounter type: initial encounter Laterality: left Rib fracture type: single rib Qualified Code(s): S22.32XA - Fracture of one rib, left side, initial encounter for closed fracture (4) Parkinsons disease: (5) Orthostatic hypotension due to Parkinson disease: Impression: The following plan is for the above two assessments: Patient with longstanding history of Parkinson's disease. He does not feel like he has much tremor at baseline. He is on Sinemet. He has been found to have worsened hypotension and dysautonomia as well as orthostatic hypotension in the past. Has been taken off of antihypertensives. Interestingly, he was discussed to start on midodrine in the community, but was prescribed Strattera twice daily. Decreased to once a day due hypertension. Given valid POLST, change status to DNR, patient in agreement. Continue home Sinemet 37.5/150 3 times daily Was started on midodrine twice daily, cut back to every morning today. Continue scheduled compression stockings. (6) Prostate cancer: Impression: History of prostate cancer. Status post radiation therapy completed earlier this year. I am unclear on his prognosis. Continue tamsulosin. (7) GERD (gastroesophageal reflux disease): Impression: Stable. Continue on formulary PPI daily. Did have a sense of choking this morning. Speech therapy evaluation ordered. 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 GFR 59. Creatinine baseline at 1.2. Making good urine. Mild hyperkalemia on arrival at 4.7. Small bolus of IV fluids in the ED. Continue to monitor BMP. (9) Type 2 diabetes mellitus: Impression: History of type 2 diabetes at baseline. Last A1c was 5.5% in May 2025.
--- NOTE | 2025-07-06 14:20 | Speech Therapy Plan of Care ---
DIAGNOSIS Date of Service Date of Service: 07/05/25 Diagnosis: FRACTURE OF LUMBAR VERTEBRA SPEECH ASSESSMENT Assessment: Mr. Daugherty is a pleasant 74-year-old male with history significant for Stage 3a chronic kidney disease secondary to DM2, prostate cancer s/p recent radiation treatment, Parkinsons disease, and a recent diagnosis of Lewy Body dementia. Speech therapy was consulted today after he reported episodes of choking in his sleep. Pt seen at lunch sitting upright in bed. He was oriented to self, place, and situation. Mild word-finding difficulty noted with repeated apologies for feeling loopy and out of it, stating its not usually this bad. Pt reports waking up coughing/choking this morning, which scared him. He denies difficulty swallowing during meals. Speech is clear and articulate. Oral mechanism exam: WFL. PO Trials:IDDSI Level 7 Regular: turkey sandwich IDDSI Level 4 Puree: applesauce IDDSI Level 3 Moderately Thick (if applicable): split pea soup IDDSI Level 0 Thin: water via straw Pt demonstrated efficient A-P transit, adequate oral clearance, timely swallow initiation, and brisk laryngeal elevation/excursion. No overt s/s of penetration or aspiration were observed. Silent aspiration cannot be ruled out, although it is not suspected at this time. Impression Pt demonstrates a functional oropharyngeal swallow. The reported coughing/choking episode is most likely related to management of secretions during sleep rather than a primary swallowing impairment. Education provided regarding swallow safety and aspiration red flags; patient verbalized understanding. Cognitive evaluation may be beneficial to further assess current changes. No further acute speech therapy needs identified. PULP OPERATOR will sign off with request to re-consult if concerns arise.
[2025-07-07 06:55] LABS: BUN - BLOOD UREA NITROGEN 20.0 mg/dL (6-20); CARBON DIOXIDE - CO2 27.0 mmol/L (21-32); CREATININE 1.1 mg/dL (0.6-1.3); GFR - MDRD 66.0 (>89)
--- NOTE | 2025-07-07 07:54 | PROVIDER PROGRESS NOTE ---
Subjective Subjective Subjective: Patient is feeling improved in terms of his pain today. He still has some lower back pain. He has had no shortness of breath, chest pain. He states he does feel a little confused and loopy. I spoke with his daughter today, Kassy. We discussed his overall plan of care. She is in agreement with him going to rehab. She provided me with the name of his neurologist, Dr. Alejandro. He is medically cleared for discharge. Awaiting SNF placement. Current Medications Current Medications Current Medications: Current Medications Generic Name Dose Route Start Last Admin Trade Name Freq PRN Reason Stop Dose Admin Acetaminophen 1,000 mg 07/03/25 12:00 07/07/25 05:59 Acetaminophen 500 Mg Tablet PO 1,000 mg TID LUDIN Administration Carbidopa/Levodopa 1.5 tab 07/03/25 08:56 07/07/25 05:58 Carbidopa/Levodopa 25 Mg/100 Mg Tablet PO 1.5 tab TID LUDIN Administration Escitalopram Oxalate 20 mg 07/03/25 13:00 07/06/25 09:01 Escitalopram 10 Mg Tablet PO 20 mg DAILY LUDIN Administration Lidocaine 1 patch 07/03/25 12:00 07/06/25 09:02 Lidocaine Patch 4% TOP Not Given DAILY LUDIN Memantine 10 mg 07/03/25 09:00 07/06/25 22:33 Memantine 5 Mg Tablet PO 10 mg BID LUDIN Administration Metformin HCl 500 mg 07/03/25 21:00 07/06/25 22:33 Metformin 500 Mg Tablet PO 500 mg BID LUDIN Administration Midodrine 10 mg 07/06/25 09:00 07/06/25 09:00 Midodrine 10 Mg Tablet PO Not Given DAILY LUDIN Morphine Sulfate 2 mg 07/03/25 08:56 Morphine 2 Mg/Ml Carpuject IVP Q2HR PRN Pain 8 to 10 Olanzapine 5 mg 07/03/25 18:59 Olanzapine Odt 5 Mg Tablet TL Q12H PRN Agitation Ondansetron HCl 4 mg 07/03/25 08:56 Ondansetron 4 Mg/2 Ml Vial IVP Q6HR PRN Nausea / Vomiting Ondansetron HCl 4 mg 07/03/25 11:26 Ondansetron Odt 4 Mg Tablet TL Q4HR PRN Nausea / Vomiting Oxycodone HCl 5 mg 07/03/25 11:25 Oxycodone 5 Mg Tablet PO Q4HR PRN Moderate Pain (Level 4-6) Sodium Chloride 10 ml 07/03/25 08:56 Sodium Chloride Flush 0.9% 10 Ml Syringe IVP PRN PRN NEEDED PER PROVIDER ORDERS Sodium Chloride 10 ml 07/03/25 09:00 07/07/25 01:00 Sodium Chloride Flush 0.9% 10 Ml Syringe IVP 10 ml 0100,0900,1700 LUDIN Administration Tamsulosin HCl 0.4 mg 07/03/25 09:00 07/06/25 09:01 Tamsulosin 0.4 Mg Capsule PO 0.4 mg DAILY LUDIN Administration Objective Vital Signs/Intake & Output Reviewed Vital Signs: Yes Vital Signs: Vital Signs x48h Temp Pulse Resp BP Pulse Ox 07/07/25 00:32 97.9 F 70 18 172/93 H 95 Intake & Output: Intake & Output 07/04/25 07/05/25 07/06/25 07/07/25 23:59 23:59 23:59 23:59 Intake Total 1960 / 1960 1730 / 1730 730 / 730 100 / 100 Output Total 150 / 150 Balance 1810 / 1810 1730 / 1730 730 / 730 100 / 100 Objective Comments/Other: GEN: No acute distress. Resting comfortably. HEENT: NC/AT, normal appearance of external ears and nose. Hearing baseline. Cardiac: Regular rate and rhythm, no murmurs. Euvolemic on exam. Pulm: Lungs CTA bilaterally, no cough, no wheezes. No adventitial lung sounds. Normal effort on room air. Abdomen: Soft, nontender, nondistended. No rebound or guarding Extremities: Moves all 4 extremities equally. Normal tone. Neuro: Face symmetric, CN II through XII intact grossly. No focal neurologic deficits. Forgetful, occasionally confabulatory. Coarse intention tremor. Fine resting tremor. Cogwheel rigidity in the upper extremities. Psych: Mood euthymic with congruent affect. Lab Results 07/05/25 04:32 07/07/25 05:46 Other Labs: Lab Results x24hrs 07/07/25 Range/Units 05:46 Sodium 139 (135-145) mmol/L Potassium 3.9 (3.5-4.5) mmol/L Chloride 105 (101-111) mmol/L Carbon Dioxide 27 (21-32) mmol/L Anion Gap 7.0 (6-13) BUN 20 (6-20) mg/dL Creatinine 1.1 (0.6-1.3) mg/dL Estimated GFR (MDRD) 66 L (>89) Glucose 94 (74-104) mg/dL Calcium 9.3 (8.5-10.3) mg/dL Assessment/Plan Problem List (1) Recurrent falls: (2) Fracture of lumbar spine: Qualifiers: Encounter type: initial encounter Fracture morphology: unspecified fracture morphology Fracture type: closed Lumbar vertebra fracture level: u nspecified lumbar vertebra Qualified Code(s): S32.009A - Unspecified fracture of unspecified lumbar vertebra, initial encounter for closed fracture (3) Closed rib fracture: Impression: The following plan is for the above three assessments. Patient a ground-level fall at home. Has a history of dysautonomia in the setting of his Parkinson's as below. He has been having more falls over the last few months. Resultant L1 and L2 compressions fractures, left ninth rib fracture. Patient was admitted for pain control, improved. Changed scheduled Tylenol 1 g 3 times daily to as needed. Continue as needed oxycodone. Has not required parenteral narcotics. PT was consulted, recommend SNF. Patient and patient's family, as well as social work are working on appropriate placement. Qualifiers: Encounter type: initial encounter Laterality: left Rib fracture type: single rib Qualified Code(s): S22.32XA - Fracture of one rib, left side, initial encounter for closed fracture (4) Parkinsons disease: (5) Orthostatic hypotension due to Parkinson disease: Impression: The following plan is for the above two assessments: Patient with longstanding history of Parkinson's disease. He does not feel like he has much tremor at baseline. He is on Sinemet. He has been found to have worsened hypotension and dysautonomia as well as orthostatic hypotension in the past. Has been taken off of antihypertensives. Interestingly, he was discussed to start on midodrine in the community, but was prescribed Strattera twice daily. Decreased to once a day due hypertension. Dose further decreased to 5 mg daily. Given valid POLST, change status to DNR, patient in agreement. Continue home Sinemet 37.5/150 3 times daily Continue scheduled compression stockings. (6) Prostate cancer: Impression: History of prostate cancer. Status post radiation therapy completed earlier this year. I am unclear on his prognosis. Continue tamsulosin. (7) GERD (gastroesophageal reflux disease): Impression: Stable. Continue on formulary PPI daily. Did have a sense of choking this morning. Speech therapy evaluation ordered. 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 GFR 59. Creatinine baseline at 1.2. Continue to monitor BMP. (9) Type 2 diabetes mellitus: Impression: History of type 2 diabetes at baseline. Last A1c was 5.5% in May 2025.
[2025-07-07] MEDS: MIDODRINE 2.5 MG TABLET PO SCH (09:00)
[2025-07-08] MEDS: ACETAMINOPHEN 500 MG TABLET PO PRN (04:12)
[2025-07-08] MEDS: BENZOCAINE/MENTHOL LOZENGE MM PRN (05:29)
[2025-07-08 06:05] LABS: BUN - BLOOD UREA NITROGEN 24.0 mg/dL (6-20); CARBON DIOXIDE - CO2 27.0 mmol/L (21-32); CREATININE 1.1 mg/dL (0.6-1.3); GFR - MDRD 66.0 (>89)
[2025-07-08 08:42] VITALS: TEMP 98.4
--- NOTE | 2025-07-08 11:10 | Discharge Summary ---
"Discharge Summary Admit Date: 07/03/25 Discharge Date: 07/08/25 Discharging Provider: Dr. Calvin Hernandez Primary Care Provider: CARRINGTON Goodman Code Status: Do Not Attempt Resuscitation Discharge [facility] Name: [facility] DIAGNOSES Discharge Diagnoses with Status of Each Condition: Recurrent falls, fracture of lumbar spine, closed rib fracturepatient had a ground-level fall at home. Has a history of dysautonomia in setting of Parkinson's disease. He has been having more frequent falls. As such, had a resultant L1 and L2 compression fracture, as well as a left ninth rib fracture. Initially was admitted for pain controlhe has only been requiring Tylenol for the last 24 to 48 hours. PT was consulted, and recommended SNF. He will need close outpatient follow-up with neurology. Here, we trialed midodrine, but it caused supine hypertension even at its lowest dose. In the outpatient, atomoxetine was being trialed, but they had not picked this up yet. Parkinson's disease, orthostatic hypotensioncontinue Sinemet. His blood pressures been elevated here to the 180s to 190s even with very low-dose midodrine. As such, this was discontinued. Continue his home Sinemet and compression stockings. Prostate cancercontinue tamsulosin. GERDcontinue PPI. Stage IIIa chronic kidney disease likely due to type 2 diabetes mellitusstable, creatinine at baseline. Type 2 diabetes mellituslast A1c was 5.5% in May 2025. Continue to monitor off antihypoglycemics. Continue regular diet. HPI History of Present Illness: Per Sabine Fox: 74 y old male with PMH DM type 2, Parkinsonism, CKD, GERD presented to ER s/p fall. Pt denies head injury or LOC. C/O lower back pain. Denies numbness, weakness in arms or legs. Denies urinary or fecal incontinence CT head and C spine showed no acute findings CT chest showed left 9th rib fracture CT L spine showed L1 and L2 compression fracture As per ER physician ( Dr Addy Pryor) he consulted with neurosurgeon/spinal surgeon product support consultant who recommneded admission to the hospital for pain control Hospitalist service as askled to admit this patient for pain control due to rib and lumbar spinal fractures CONSULTS | PROCEDURES Consultations: PT, SW Procedures: CT head and C spine showed no acute findings CT chest showed left 9th rib fracture CT L spine showed L1 and L2 compression fracture HOSPITAL COURSE Hospital Course: Patient is a 74-year-old male with a history of Parkinson's, Lewy body dementia who presented after a fall. He has been having worsening dizziness at home. He this time, he had a ground-level fall. Has a history of dysautonomia in setting of Parkinson's disease. He has been having more frequent falls. As such, had a resultant L1 and L2 compression fracture, as well as a left ninth rib fracture. Initially was admitted for pain controlhe has only been requiring Tylenol for the last 24 to 48 hours. PT was consulted, and recommended SNF. He will need close outpatient follow-up with neurology. Here, we trialed midodrine, but it caused supine hypertension even at its lowest dose. In the outpatient, atomoxetine was being trialed, but they had not picked this up yet. He was deemed medically stable for discharge home with close follow up with PCP and neurology. ALLERGIES Allergies Allergy/AdvReac Type Severity Reaction Status Date / Time No Known Drug Allergies Allergy Verified 07/02/25 18:36 MEDICATIONS Ambulatory Orders Medication Instructions Recorded Confirmed carbidopa 25 mg-levodopa 100 mg 1.5 tab PO TID 5 07/04/25 tablet (Sinemet) memantine 10 mg tablet (Namenda) 10 mg PO BID #180 tab s 05/31/25 07/04/25 tamsulosin 0.4 mg capsule 0.4 mg PO DAILY #90 caps 07/04/25 atomoxetine 10 mg capsule 10 mg PO BID #60 caps 07/04/25 Held on 07/08/25. Instructions: Resume on 07/22/25. Hold until follow up neurologist. metformin 500 mg tablet 500 mg PO BID #180 tabs 06/1807/04/25 escitalopram oxalate 20 mg tablet 20 mg PO DAILY 07/0407/04/25 acetaminophen 500 mg tablet 1,000 mg (2 x 500 mg) PO T ID PRN 07/08/25 (Tylenol Extra Strength) Mild pain #30 tabs lidocaine 4 % topical patch 1 patch topical DAILY #30 ea 07/08/25 PHYSICAL EXAM AT DISCHARGE Vital Signs: Vital Signs x48h Temp Pulse Resp BP BP Pulse Ox 07/08/25 13:37 98.4 F 72 19 150/87 H 96 07/08/25 08:08 73 188/101 H 07/08/25 08:05 98.4 F 68 18 178/102 H 95 GEN: No acute distress. Resting comfortably. HEENT: NC/AT, normal appearance of external ears and nose. Hearing baseline. Cardiac: Regular rate and rhythm, no murmurs. Euvolemic on exam. Pulm: Lungs CTA bilaterally, no cough, no wheezes. No adventitial lung sounds. Normal effort on room air. Abdomen: Soft, nontender, nondistended. No rebound or guarding Extremities: Moves all 4 extremities equally. Normal tone. Neuro: Face symmetric, CN II through XII intact grossly. No focal neurologic deficits. Forgetful, occasionally confabulatory. Coarse intention tremor. Fine resting tremor. Cogwheel rigidity in the upper extremities. Psych: Mood euthymic with congruent affect. LABS 07/05/25 04:32 07/08/25 05:29 FOLLOW UP Follow Up: Follow up with PCP. Follow up with neurology. TIME SPENT Time Spent in Discharge (Minutes): 35 Discharge Plan Discharge Patient Disposition: 03 [facility] DC/Xfer Condition: Stable Prescriptions: New lidocaine 4 % Adhesive Patch,Medicated 1 patch topical DAILY Qty: 30 0RF acetaminophen [Tylenol Extra Strength] 500 mg Tablet 1,000 mg PO TID PRN (Reason: Mild pain) Qty: 30 0RF Continued metformin 500 mg tablet 500 mg PO BID Qty: 180 4RF escitalopram oxalate 20 mg tablet 20 mg PO DAILY Rx Instructions: Take 1 tablet by mouth once a day carbidopa-levodopa [Sinemet] 25-100 mg tablet 1.5 tab PO TID memantine [Namenda] 10 mg tablet 10 mg PO BID Qty: 180 4RF tamsulosin 0.4 mg capsule 0.4 mg PO DAILY Qty: 90 4RF Held atomoxetine 10 mg capsule 10 mg PO BID Qty: 60 5RF Hold Instructions: Resume on 07/22/25. Hold until follow up neurologist. Rx Instructions: Take 1 capsule by mouth twice a day Activity Restrictions: Activity as Tolerated Diet: Regular Health Concerns: You came in because you were having more frequent falls at home. These falls are likely attributed to something called dysautonomia which is resulting in orthostatic hypotension. In simple terms, this means that because of your Parkinson's disease, it is difficult for your body to regulate your blood pressure, especially when you are changing positions, i.e. going from lying down to sitting to standing up. This often results in you feeling very dizzy. There are some things that you can do to help improve the symptomsmaking sure you are adequately hydrated, employing a higher salt diet, and wearing your compression stockings. I would like you to continue to follow-up with your neurologist. Here, we trialed a medication called midodrine which can help with this. However, it caused your blood pressure to be very high even at the very lowest dose. I understand that your neurologist was planning on trialing you on atomoxetine; please continue conversations with them in the outpatient setting to see if this would be an appropriate option for you. We are hoping that rehab will help you develop some techniques to deal with your dizziness, and work on your balance so you are falling less. I am very glad that you have such a great support system around you with your daughter and your . We hope you continue to feel better. Thank you for allowing us to care for you. Print Language: Frisian Patient Instructions: Orthostatic Hypotension Stand Alone Forms: SNF Discharge, PCP List Follow-up Care: Angelica Collier, [employer]INE [Primary Care Provider, Family Practice] Report called to and time (if no answer, doc. time of each call attempted): Juliann negro at [facility] 1300 Vitals documented within 30 minutes of discharge?: Yes"
[2025-07-08 13:38] VITALS: BP 150/87; O2SAT 96
== END 2025-07-08 13:50 | DRG 552 ==
LOC: EDBD → ED 18:27 → MS3 07-03 05:04 → SUATTDRO 07-03 05:04 → MS3 07-03 05:33
PROVIDERS: ADMIT Internal Medicine; ATTEND Student in an Organized Health Care Education/Training Program
DX: I95.1 Orthostatic hypotension; R09.89 Other specified symptoms and signs involving the circulatory and respiratory systems; R53.1 Weakness; W19.XXXA Unspecified fall, initial encounter; K21.9 Gastro-esophageal reflux disease without esophagitis; R42 Dizziness and giddiness; S32.020A Wedge compression fracture of second lumbar vertebra, initial encounter for closed fracture; C61 Malignant neoplasm of prostate; G20.B1 Parkinson's disease with dyskinesia, without mention of fluctuations; S22.32XA Fracture of one rib, left side, initial encounter for closed fracture; I12.9 Hypertensive chronic kidney disease with stage 1 through stage 4 chronic kidney disease, or unspecified chronic kidney disease; Z79.84 Long term (current) use of oral hypoglycemic drugs; S32.010A Wedge compression fracture of first lumbar vertebra, initial encounter for closed fracture; Y92.009 Unspecified place in unspecified non-institutional (private) residence as the place of occurrence of the external cause; R29.6 Repeated falls; S09.90XA Unspecified injury of head, initial encounter; Z79.899 Other long term (current) drug therapy; E11.22 Type 2 diabetes mellitus with diabetic chronic kidney disease; N18.31 Chronic kidney disease, stage 3a